=== PATIENT | male | born 1950 | race Caucasian/White ===

== ENCOUNTER 2022-05-18 15:37 | Emergency (ER) | payer SELFPAY ==
[2022-05-18 15:46] VITALS: BP 131/78; PULSE 88; RESP 22; O2SAT 90; BMI 19.5
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
[2022-05-18] MEDS: ketorolac 30 mg/mL INJ IVP (16:20)
[2022-05-18] MEDS: ondansetron 2 mg/ML SDV 2 mL 4 MG IVP (16:20)
[2022-05-18] MEDS: tetanus-dipt-pertussis 0.5 mL SDV IM (16:21)
[2022-05-18 16:41] VITALS: TEMP 36.7
[2022-05-18 16:52] LABS: Basophils % 0.2 %; Eosinophils % 0.2 %; Hematocrit 38.8 % (42.0-52.0); Hemoglobin 12.7 g/dL (11.7-16.6); Lymphocytes # 2.1 10^3/uL (0.8-4.8); Lymphocytes % 10.6 %; Mean Corpuscular HGB Conc 32.7 g/dL (30.0-36.0); Mean Corpuscular Hemoglobin 30.5 pg (28.0-34.0); Mean Corpuscular Volume 93.3 fl (80-94); Mean Platelet Volume 10.2 fL (7.4-10.4); Monocytes % 5.3 %; Neutrophils # 16.11 10^3/uL (1.8-7.7); Nucleated Red Blood Cells % 0 %; Platelet Count 241 10^3/cmm (130-400); Red Blood Count 4.16 10^6/uL (4.1-5.3); Red Cell Distribution Width 13.6 % (12.1-15.1); White Blood Count 19.4 10^3/uL (4.0-10.0)
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
[2022-05-18 17:27] LABS: Alanine Aminotransferase 22 U/L (0-41); Albumin Level 3.7 g/dL (3.5-5.2); Alkaline Phosphatase 81 U/L (40-130); Anion Gap 20.7 (5-19); Aspartate Amino Transferase 27 U/L (0-40); Blood Urea Nitrogen 17 mg/dL (8-23); Calcium 8.7 mg/dL (8.5-10.5); Carbon Dioxide 20 mmol/L (22-29); Chloride 104 mmol/L (98-107); Globulin 2.8 g/dL (1.3-4.6); Glomerular Filtration Rate 54.6 mL/min (90-130); Glucose 129 mg/dL (65-115); Osmolality Calculated 295 mOsm/kg (285-295); Potassium 3.7 mmol/L (3.5-5.1); Sodium 141 mmol/L (136-145); Total Bilirubin 0.5 mg/dL (0.15-1.2); Total Protein 6.5 g/dL (6.6-8.7)
[2022-05-18 17:29] LABS: Alcohol Level < 10 mg/dL (0-10)
[2022-05-18 19:06] VITALS: BP 172/104; PULSE 80; RESP 22; O2SAT 98
[2022-05-18] MEDS: HYDROmorphone 1 mg/mL INJ 1 mL IVP (19:31)
[2022-05-18 20:24] VITALS: BP 101/80; PULSE 80; RESP 22; O2SAT 98
== END 2022-05-18 20:27 ==
PROVIDERS: Emergency Provider Emergency Medicine
DX: S61.412A Laceration without foreign body of left hand, initial encounter (principal); S27.321A Contusion of lung, unilateral, initial encounter; S09.8XXA Other specified injuries of head, initial encounter; J93.9 Pneumothorax, unspecified; S40.812A Abrasion of left upper arm, initial encounter; V85.0XXA Driver of special construction vehicle injured in traffic accident, initial encounter; Z23 Encounter for immunization
CPT/HCPCS: 12004; 70450; 71260; 72125; 74177; 80053; 80307; 85025; 90471; 90715; 96374; 96375; 99285; J1170; J1885; J2405; Q9967

== ENCOUNTER 2022-09-11 17:44 | Inpatient (IN) | payer MEDICARE, SELFPAY ==
[2022-09-11] VITALS (8 sets, daily range): BP systolic 151–183; BP diastolic 84–112; PULSE 65–101; RESP 18–29; O2SAT 88–100
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
[2022-09-11] MEDS: ipratropium-albuterol 3 mL Neb INHALATION (18:24)
--- NOTE | 2022-09-11 18:33 | ECG_ITS ---
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 Measurements Intervals [place] Rate: 89 P: 0 MO: 0 QRS: 91 QRSD: 128 T: 268 QT: 397 QTc: 485 Interpretive Statements UNCERTAIN REGULAR RHYTHM BORDERLINE RIGHT AXIS DEVIATION [QRS AXIS > 90] MODERATE INTRAVENTRICULAR CONDUCTION DELAY [110+ ms QRS DURATION] NONSPECIFIC ST & T-WAVE ABNORMALITY No previous ECG available for comparison Electronically Signed On 09-12-2022 6:18:54 IRRIGATOR VALVE PIPE by Hemant Morris M.D. [id number]
[2022-09-11 18:34] LABS: ABG PCO2 35.8 mmHg (35-45); ABG PH Result 7.48 (7.35-7.45); Arterial Blood Gas Hematocrit 36.1 % (42-52); Base Excess ABG 3.4 mmol/L (-2.0-2.0); Blood Gas Allen Test Pos; Blood Gas Operator Identificat CAK; Blood Gas Sample Site Brachial, right; Blood Gas Sample Type Arterial; HCO3 ABG 26.8 mmol/L (22-26); Oxygen Device BIPAP
[2022-09-11 18:42] LABS: Basophils % 0.2 %; Hematocrit 42.4 % (42.0-52.0); Hemoglobin 12.8 g/dL (11.7-16.6); Lymphocytes # 0.6 10^3/uL (0.8-4.8); Lymphocytes % 6.7 %; Mean Corpuscular HGB Conc 30.2 g/dL (30.0-36.0); Mean Corpuscular Hemoglobin 25.6 pg (28.0-34.0); Mean Corpuscular Volume 84.8 fl (80-94); Mean Platelet Volume 9.4 fL (7.4-10.4); Monocytes # 0.4 10^3/uL (0.2-0.9); Monocytes % 4.9 %; Neutrophils # 7.88 10^3/uL (1.8-7.7); Nucleated Red Blood Cells % 0 %; Platelet Count 311 10^3/cmm (130-400); Red Cell Distribution Width 19.3 % (12.1-15.1)
[2022-09-11 19:07] LABS: Lactate (Lactic Acid level) 2.5 mmol/L (0.5-2.2)
[2022-09-11 19:09] LABS: Troponin(5th) Baseline 234 ng/L (0-15)
[2022-09-11 19:16] LABS: Alanine Aminotransferase 25 U/L (0-41); Albumin Level 2.6 g/dL (3.5-5.2); Alkaline Phosphatase 109 U/L (40-130); Aspartate Amino Transferase 19 U/L (0-40); Blood Urea Nitrogen 32 mg/dL (8-23); C Reactive Protein 178.2 mg/L (0.0-4.9); Carbon Dioxide 28 mmol/L (22-29); Chloride 103 mmol/L (98-107); Globulin 4.6 g/dL (1.3-4.6); Glomerular Filtration Rate 50.1 mL/min (90-130); Glucose 89 mg/dL (65-115); Osmolality Calculated 304 mOsm/kg (285-295); Sodium 144 mmol/L (136-145); Total Bilirubin 0.8 mg/dL (0.15-1.2); Total Protein 7.2 g/dL (6.6-8.7)
[2022-09-11 19:20] LABS: Influenza A by IFA negative (Negative); Influenza B by IFA negative (Negative); SARS Covid-2 Antigen negative (Negative)
--- NOTE | 2022-09-11 19:57 | ECG_ITS ---
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 Measurements Intervals [place] Rate: 79 P: -53 AK: 124 QRS: 106 QRSD: 122 T: 120 QT: 438 QTc: 504 Interpretive Statements SINUS RHYTHM POSSIBLE RIGHT VENTRICULAR HYPERTROPHY [SOME/ALL OF: PROMINENT R IN V1, LATE TRANSITION, RAD, UMM, SSS] MODERATE T-WAVE ABNORMALITY, CONSIDER ANTERIOR ISCHEMIA [-0.1+ mV T-WAVE IN V3/V4] Compared to ECG 09/11/2022 18:33:10 Possible ischemia now present Intraventricular conduction delay no longer present T-wave abnormality still present Electronically Signed On 09-12-2022 6:21:07 WAREHOUSE INSULATION WORKER by Hemant Morris M.D. [id number]
[2022-09-11] MEDS: FUROsemide 10 mg/mL SDV 10mL 80 MG IVP (20:04)
[2022-09-11] MEDS: nitroglycerin 1 gm/inch oint Pkt 2 INCH TOPICAL (20:04)
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
--- NOTE | 2022-09-11 20:43 | PC.NURSE ---
Sandra DON given pt report.
[2022-09-11 20:59] LABS: Procalcitonin 0.45 ng/mL (0-0.5)
[2022-09-11] MEDS: aspirin 81 mg Chew Tablet 162 MG PO (21:02)
--- NOTE | 2022-09-11 21:03 | PC.NURSE ---
patient moved from bipap machine to 4.[address] Márquez . patient tolerated change well. patient in no obivous distress. patient will be transferred to floor accordingly .
[2022-09-11] MEDS: heparin drip 25,000 UNIT/500 ML PREMIX 17 UNIT IV (22:17)
[2022-09-11] MEDS: heparin 5,000 unit/mL INJ 1 mL IV (22:17)
[2022-09-11] MEDS: pneumococcal (23 valent) SDV 0.5 mL IM (22:22)
[2022-09-11] MEDS: clopidogrel 300 mg Tablet PO (22:23)
[2022-09-11 22:28] LABS: D Dimer 5.96 ug/mIFEU (0-0.59)
[2022-09-11 22:35] LABS: Platelet Count 304 10^3/cmm (130-400)
[2022-09-11 22:49] LABS: Partial Thromboplastin Time 31.4 SECONDS (23.9-36.7)
[2022-09-11 22:59] LABS: Estmated Average Glucose 123; Hemoglobin A1C 5.9 % (4.0-6.0)
[2022-09-11 23:44] LABS: Thyroid Stimulating Hormone 3.81 uIU/mL (0.27-4.20); Vitamin B12 1236 pg/mL (232-1245)
[2022-09-12] VITALS (153 sets, daily range): BP systolic 119–166; BP diastolic 56–87; PULSE 38–81; RESP 7–29; TEMP 36.3–36.9; O2SAT 79–100
[2022-09-12 05:00] LABS: Basophils % 0.1 %; Hematocrit 41.3 % (42.0-52.0); Hemoglobin 12.6 g/dL (11.7-16.6); Lymphocytes # 0.5 10^3/uL (0.8-4.8); Lymphocytes % 7.1 %; Mean Corpuscular HGB Conc 30.5 g/dL (30.0-36.0); Mean Corpuscular Hemoglobin 25.7 pg (28.0-34.0); Mean Corpuscular Volume 84.1 fl (80-94); Mean Platelet Volume 9.8 fL (7.4-10.4); Monocytes # 0.1 10^3/uL (0.2-0.9); Neutrophils # 6.19 10^3/uL (1.8-7.7); Neutrophils % 91.5 %; Nucleated Red Blood Cells % 0 %; Platelet Count 292 10^3/cmm (130-400); Red Blood Count 4.91 10^6/uL (4.1-5.3); Red Cell Distribution Width 18.9 % (12.1-15.1); White Blood Count 6.8 10^3/uL (4.0-10.0)
[2022-09-12 05:20] LABS: Partial Thromboplastin Time 40.9 SECONDS (23.9-36.7)
[2022-09-12 05:32] LABS: Anion Gap 18.5 (5-19); Blood Urea Nitrogen 34 mg/dL (8-23); C Reactive Protein 172.9 mg/L (0.0-4.9); Calcium 8.6 mg/dL (8.5-10.5); Carbon Dioxide 28 mmol/L (22-29); Chloride 100 mmol/L (98-107); Glomerular Filtration Rate 54.6 mL/min (90-130); Glucose 100 mg/dL (65-115); Magnesium 2.2 mg/dL (1.7-2.3); Osmolality Calculated 304 mOsm/kg (285-295); Potassium 3.5 mmol/L (3.5-5.1); Sodium 143 mmol/L (136-145)
[2022-09-12] MEDS: heparin 5,000 unit/mL INJ 1 mL IV ×2 (05:40→12:59)
--- NOTE | 2022-09-12 06:00 | USCV_ITS ---
Samuel Dale Age: 72 Gender: M : 1950 Exam Date: 09/12/2022 10:40 Ordering Phys: Jose Raul Márquez MD Technologist: Exam Location: [facility] – [place], [place] Indication: nstemi BP: 169 / 87 HR: 52 Rhythm: Sinus Technical Quality: Adequate MEASUREMENTS (Male / Female) Normal Values 2D ECHO LV Diastolic Diameter PLAX 3.5 cm 4.2 - 5.9 / 3.9 - 5.3 cm LV Systolic Diameter PLAX 3.0 cm IVS Diastolic Thickness 1.0 cm 0.6 - 1.0 / 0.6 - 0.9 cm IVS Systolic Thickness 1.4 cm LVPW Diastolic Thickness 1.2 cm 0.6 - 1.0 / 0.6 - 0.9 cm LVPW Systolic Thickness 1.6 cm LVOT Diameter 2.1 cm LV Ejection Fraction 2D Teich 21.5 % LV Ejection Fraction MOD 2C 59.7 % LV Ejection Fraction 2C AL 58.2 % LA Diameter 3.9 cm IVC Diameter 1.6 cm M-MODE Aortic Annulus Diameter 3.7 cm LA Ao Ratio MM 1.2 DOPPLER AV Peak Velocity 119.0 cm/s LVOT Peak Velocity 90.0 cm/s AV Area Cont Eq vti 2.2 cm squared AV Area Cont Eq pk 2.6 cm squared MV Area PHT 5.0 cm squared Mitral E to A Ratio 0.8 MV E' Velocity 30.5 cm/s Mitral E to MV E' Ratio 10.6 Mitral E to LV E' Lateral Ratio 9.5 Mitral E to LV E' Septal Ratio 12.0 TR Peak Velocity 135.3 cm/s TR Peak Gradient 7.3 mmHg RV Acceleration Time 0.1 s FINDINGS Left Ventricle Left ventricle is normal in size. LV systolic function is normal with EF 55 to 60%. No regional wall motion abnormalities are seen. Grade 1 diastolic dysfunction Right Ventricle Normal in size and function Right Atrium Normal in size Left Atrium Normal in size Mitral Valve Structurally normal mitral valve. No significant stenosis or regurgitation seen. Aortic Valve Structurally normal aortic valve. No significant stenosis or regurgitation Tricuspid Valve Trace tricuspid regurgitation. Insufficient TR jet to calculate RVSP Pulmonic Valve Not well-visualized Pericardium Normal. Pleural effusion is seen Aorta Normal in size IVC Appears to be normal CONCLUSIONS LV systolic function is normal with EF of 55-60% Grade 1 diastolic dysfunction No significant valvular dysfunction seen No comparison studies are available Hemant Morris MD (Electronically Signed) Final Date: 12 September 2022 20:15 S
[2022-09-12] MEDS: metoprolol succinate ER (24 HR) 25 mg Tablet 12.5 MG PO (08:26)
[2022-09-12] MEDS: clopidogrel 75 mg Tablet PO (08:26)
[2022-09-12] MEDS: amlodipine 10 mg Tablet PO (08:26)
[2022-09-12] MEDS: atorvastatin 40 mg Tablet 80 MG PO (08:26)
[2022-09-12] MEDS: FUROsemide 10 mg/mL SDV 10mL 20 MG IVP (08:27)
[2022-09-12] MEDS: hyDRALAzine 25 mg Tablet PO ×2 (08:27→17:14)
[2022-09-12] MEDS: sennosides-docusate Tablet 1 TAB PO (08:32)
[2022-09-12] MEDS: aspirin 81 mg EC Tablet PO (08:48)
--- NOTE | 2022-09-12 12:06 | PC.CHAP ---
Pastoral Care Encounter/Spiritual Assessment Type of Contact [] Declined gas line servicer visit [] Patient/Family/Request visit [] Outpatient visit [] Follow-up visit [] Physician referral [] Code/Alert [x] Routine visit [] Staff referral [] Actively dying [] Patient sleeping [] Family support [] [] Out of room [] Palliative care [] [] Receiving care in room [] Pre-surgical visit [] Trauma [] Long length of stay [] ICU visit [] Other: Relational/Emotional Strength [x] Patient feels connected with others/family/visitors/staff [] Distress [] Loneliness/isolation [] Abandonment Spirituality of Patient [x] Person of [place] [x] Attends Pentecostal of their [place] [x] Believes in Prayer [] Reads Bible or Orthodox materials [] There are Spiritual issues to be addressed Bank Consultant Interventions [x] Prayer [x] Active listening [x] Non-anxious presence [x] Spiritual/emotional support [] Crisis/trauma care [] Spiritual counseling [] Bereavement support [] Provided bereavement packet [] Provided Bible/devotional materials [] Provided toy/stuffed animal, coloring book to patient or family member [] Provided Communion [] Anointing/[place] [] Salvation [x] Completed spiritual assessment [] Other: Impact on Illness or Injury [] Angry [] Fearful [] Anxious [] Often cries [] Exhaustion [] Unable to work [] Unable to attend synagogue [] Unable to walk/stand [] Unable to read [] Unable to drive [] Unable to eat/drink [] Unable to sleep [] Unable to be with family [] Patient intubated [] Other: Summary Time spent with patient 10 min
[2022-09-12 12:20] LABS: Partial Thromboplastin Time 45.7 SECONDS (23.9-36.7)
[2022-09-12 19:03] LABS: Partial Thromboplastin Time 49.3 SECONDS (23.9-36.7)
--- NOTE | 2022-09-12 19:30 | PM.PN ---
Subjective Subjective: He has been having pleuritic chest discomfort. Denies chest pressure. Denies pain currently. Denies any history of GA in the past. Vitals/I&O/Wt Last Vital Signs Temp 98.5 F 09/12/22 16:00 Pulse 67 09/12/22 16:30 Resp 16 09/12/22 16:30 BP 119/56 09/12/22 16:00 Pulse Ox 87 L 09/12/22 17:15 O2 Del Method 09/12/22 17:15 O2 Flow Rate 1.5 09/12/22 16:30 FiO2 40 09/11/22 18:28 09/12/22 09/12/22 09/12/22 06:59 14:59 22:59 Intake Total 875.517 / 995.517 619.333 / 619.333 Output Total 2049 / 2199 225 / 225 150 / 375 Balance -1174.483 / -1204.483 394.333 / 394.333 -150 / 244.333 Weight last 48 hrs Weight 60.895 kg Physical Exam Const: COMMON NORMALS: patient oriented x3 and alert GENERAL APPEARANCE: cooperative NUTRITIONAL APPEARANCE: thin ORIENTATION/CONSCIOUSNESS: Yes awake HENMT: COMMON NORMALS: oropharynx normal Neck/C-Spine: COMMON NORMALS: no JVD Resp: COMMON NORMALS: normal respiratory effort AUSCULTATION: diminished lung sounds Cardio: COMMON NORMALS: no JVD, regular rhythm, S1 normal heart sound present, S2 normal heart sound present and No murmurs present (Cardio) RHYTHM: regular rhythm HEART SOUNDS: S1 normal heart sound present and S2 normal heart sound present GI: COMMON NORMALS: Normal to inspection, nondistended, normoactive bowel sounds present, Soft to palpation and non-tender PALPATION: Yes Soft to palpation Extremity: COMMON NORMALS: no joint enlargement and no pedal edema Neuro: COMMON NORMALS: patient oriented x3 and moves all extremities SENSORIUM/ORIENTATION: Yes alert Skin: COMMON NORMALS: no rashes or lesions noted GENERAL SKIN EXAM: no rashes or lesions noted Data 09/12/22 04:17 09/12/22 04:17 Micro: Microbiology 09/11/22 18:18 Blood Culture - Preliminary Blood 09/11/22 18:25 Blood Culture - Preliminary Blood 09/11/22 21:51 MRSA Culture - Final Nose A&P Assessment and plan (1) Acute exacerbation of CHF (congestive heart failure): Continue gentle diuresis. Monitor I&O. Electrolytes. Renal function. Oxygen support as needed. Maintain saturation 90%. With pleural effusion. Consider follow-up imaging for improvement/resolution. (2) Pulmonary edema: As above. (3) Acute respiratory failure with hypoxia: Continue empiric anticoagulation for now. D-dimer was abnormal. Will need further assessment for PE. Currently also with ANGELA. (4) Energy protein malnutrition: Protein shakes with meals. (5) NSTEMI (non-ST elevated myocardial infarction): Continue aspirin, beta-jose, statin. Continue heparin drip. No chest pain. May be demand ischemia with acute CHF, COPD exacerbation. Follow-up TTE. Remains chest pain-free. Assess stress test. (6) Acute worsening of stage 3 chronic kidney disease: Plan Acute on chronic kidney disease cardiorenal, anticipate improvement with diuresis. Follow-up renal function. Acute COPD exacerbation related to CHF exacerbation and active smoking: Mild, continue DuoNeb every 4 as needed Goals of care discussed with the patient and his , patient wishes to pursue comfort care in case of cardiac arrest he does not want any aggressive intervention History of rib fracture after traumatic injury has screws and plates left rib cage Stage II sacral ulcer present on admission, nursing care, weight offloading, offloading dressing, application of barrier cream Multiple comorbid conditions Cardiac diet Guarded prognosis Attestations Medical Necessity Statement*: Continue admission for cyst management of acute CHF, with underlying COPD, mild exacerbation, possible NSTEMI. Coding Level of Care Code Acute Reed Press Feeder for Marisela Gregorio Diagnoses Acute exacerbation of CHF (congestive heart failure) I50.9 Pulmonary edema J81.1 Acute respiratory failure with hypoxia J96.01 Energy protein malnutrition E46 NSTEMI (non-ST elevated myocardial infarction) I21.4 Acute worsening of stage 3 chronic kidney disease N18.30
[2022-09-12] MEDS: ipratropium-albuterol 3 mL Neb INHALATION (20:38)
[2022-09-13] VITALS (113 sets, daily range): BP systolic 128–170; BP diastolic 66–96; PULSE 58–91; RESP 14–38; TEMP 36.7–37; O2SAT 76–100
--- NOTE | 2022-09-13 | ECG_ITS ---
[facility] Test Date: 2022-09-13 Pat Name: Samuel Dale Department: Room: 101 Gender: Male Wellness Educator: Shahnaz Hunt : 1950 Requested By: Moo Zapata Order Number: [id number] Cindy MD: Lois Mahajan M.D. Interpretive Statements NAME OF STUDY: LEXISCAN SESTAMIBI STRESS TEST INDICATION: Chest Pain; Shortness of Breath PROCEDURE: At the baseline, the blood pressure was 156/94 mm Hg with a heart rate of 80 bpm. The electrocardiogram showed sinus rhythm, right axis deviation. Right bundle branch block. The Lexiscan was infused over a period of 20 seconds. A total of 0.4 milligrams of Lexiscan was infused. The stress phase was continued for a total of 5 minutes. Heart rate at the end of the stress phase was 77 bpm with a blood pressure of 162/84 mmHg. The EKG at the peak infusion revealed sinus rhythm with no significant ST-T wave changes. Short run of atrial tachycardia during Lexiscan infusion. Study was terminated due to protocol completion. Sestamibi was injected 20 seconds after the Lexiscan infusion. Blood pressure at the end of the recovery phase was 158/78 mmHg with a heart rate of 76 beats per minute. CONCLUSION: 1. No significant EKG changes with the LexiScan infusion. 2. No LexiScan induced chest pain or cardiac arrhythmia. 3. Normal blood pressure and heart rate response. 4. Sestamibi/sestamibi perfusion scan pending; see separate report. Electronically Signed On 09-13-2022 14:17:36 MANAGER CUSTOM by Lois Mahajan M.D. [email or web address] Codingst[facility] [place] [facility].[id number]
[2022-09-13] MEDS: heparin drip 25,000 UNIT/500 ML PREMIX 21 UNIT IV (00:17)
[2022-09-13 01:50] LABS: Basophils % 0.3 %; Eosinophils % 0.1 %; Hematocrit 35.1 % (42.0-52.0); Hemoglobin 10.5 g/dL (11.7-16.6); Lymphocytes # 0.8 10^3/uL (0.8-4.8); Lymphocytes % 6.7 %; Mean Corpuscular HGB Conc 29.9 g/dL (30.0-36.0); Mean Corpuscular Hemoglobin 25.4 pg (28.0-34.0); Mean Corpuscular Volume 84.8 fl (80-94); Mean Platelet Volume 9.6 fL (7.4-10.4); Monocytes # 0.5 10^3/uL (0.2-0.9); Neutrophils # 10.53 10^3/uL (1.8-7.7); Neutrophils % 88.5 %; Nucleated Red Blood Cells % 0 %; Platelet Count 252 10^3/cmm (130-400); Red Blood Count 4.14 10^6/uL (4.1-5.3); Red Cell Distribution Width 18.8 % (12.1-15.1); White Blood Count 11.9 10^3/uL (4.0-10.0)
[2022-09-13 01:53] LABS: Partial Thromboplastin Time 52.6 SECONDS (23.9-36.7)
[2022-09-13 02:20] LABS: Alanine Aminotransferase 29 U/L (0-41); Albumin Level 2.2 g/dL (3.5-5.2); Alkaline Phosphatase 86 U/L (40-130); Anion Gap 13.1 (5-19); Aspartate Amino Transferase 42 U/L (0-40); Blood Urea Nitrogen 45 mg/dL (8-23); Calcium 8.2 mg/dL (8.5-10.5); Carbon Dioxide 31 mmol/L (22-29); Chloride 101 mmol/L (98-107); Globulin 3.6 g/dL (1.3-4.6); Glomerular Filtration Rate 54.6 mL/min (90-130); Glucose 119 mg/dL (65-115); Osmolality Calculated 307 mOsm/kg (285-295); Potassium 3.1 mmol/L (3.5-5.1); Sodium 142 mmol/L (136-145); Total Bilirubin 0.4 mg/dL (0.15-1.2); Total Protein 5.8 g/dL (6.6-8.7)
[2022-09-13] MEDS: heparin 5,000 unit/mL INJ 1 mL IV ×2 (02:20→11:39)
--- NOTE | 2022-09-13 02:25 | PC.NURSE ---
notified of drop in hemoglobin from 12.6 to 10.5 since starting Heparin gtt. No new orders received. Will continued heparin as previously ordered per protocol. Rate increase and bolus administered per NOV.
[2022-09-13] MEDS: ipratropium-albuterol 3 mL Neb INHALATION ×3 (02:30→19:33)
--- NOTE | 2022-09-13 07:00 | NMCV_ITS ---
NM ronna perf SPECT r/s* [id number] Samuel Dale Age: 72 Gender: M : 1950 Exam Date: 09/13/2022 07:40 Ordering Phys: Moo Zapata MD Technologist: ESDRAS Moreno Exam Location: [facility] Indications: CHEST PAIN STRESS TEST Please see separate stress test report in [facility] for full findings IMAGE PROTOCOL Rest/Stress 1 Lexiscan Day Radiopharmaceutical Dose (mCi) Administration Site Administered by Rest: Tc-99m 10.6 IV ESDRAS Oliva Sestamibi Stress:Tc-99m 32.6 IV ESDRAS Oliva Sestamibi Rest: 13-Sep-2022 60 Discovery 630 Stress: 13-Sep-2022 30 Discovery 630 0.4mg Lexiscan. Supine position only as patient was unable to lay prone. SPECT RESULTS Technical Quality: Excellent Raw Data Analysis: Normal Image Corrections: No attenuation or motion correction applied Summed Stress Score: 20 Summed Rest Score: 15 Summed Difference Score: 6 PERFUSION FINDINGS Large sized perfusion abnormality of moderate to severe severity of basal to apical inferior, basal to mid inferolateral, apical lateral, mid anterolateral, apical anterior and apical sanchez on rest images with subtle reversibility in lateral wall on stress images. FUNCTIONAL RESULTS (calculated via Gated SPECT) Stress Image LV EF (%): 37 Stress EDV (mL):134 TID: 0.9 Stress ESV (mL):85 FUNCTIONAL FINDINGS: The left ventricle is normal in size. Transient Ischemia Dilatation of 0.9. The left ventricular ejection fraction is moderately reduced with a value of 37%. There is global hypokinesis more pronounced in inferior and lateral sanchez. Markedly increased end-diastolic end-systolic volumes. IMPRESSIONS 1. Large sized perfusion abnormality of basal to apical inferior, basal to mid inferolateral, apical lateral, mid anterolateral, apical anterior and apical sanchez with subtle reversibility in lateral wall. 2. This is suggestive of old myocardial infarction in right coronary artery, circumflex artery and left anterior descending artery territory with minimal micki-infarct ischemia in circumflex artery territory. 3. The left ventricular ejection fraction is moderately reduced with a value of 37%. 4. There is global hypokinesis more pronounced in inferior and lateral sanchez. 5. These findings are compatible with an ischemic cardiomyopathy. Lois Keyshawn MD (Electronically Signed) Final Date: 13 September 2022 13:07 S
[2022-09-13] MEDS: regadenoson 0.4 Mg/5 ml Syringe IVP (08:15)
[2022-09-13 08:28] LABS: Partial Thromboplastin Time 30.8 SECONDS (23.9-36.7)
[2022-09-13] MEDS: aspirin 81 mg EC Tablet PO (09:47)
[2022-09-13] MEDS: metoprolol succinate ER (24 HR) 25 mg Tablet 12.5 MG PO (09:47)
[2022-09-13] MEDS: potassium chloride ER 20 mEq Tablet 40 MEQ PO (09:47)
[2022-09-13] MEDS: amlodipine 10 mg Tablet PO (09:48)
[2022-09-13] MEDS: atorvastatin 40 mg Tablet 80 MG PO (09:49)
[2022-09-13] MEDS: sennosides-docusate Tablet 1 TAB PO (09:49)
[2022-09-13] MEDS: clopidogrel 75 mg Tablet PO (09:49)
[2022-09-13] MEDS: hyDRALAzine 25 mg Tablet PO ×2 (09:49→17:31)
[2022-09-13] MEDS: FUROsemide 10 mg/mL SDV 10mL 20 MG IVP (09:50)
[2022-09-13 14:51] LABS: Partial Thromboplastin Time 91.8 SECONDS (23.9-36.7)
--- NOTE | 2022-09-13 20:00 | P.PN_ITS ---
Subjective Subjective: States he got very tired during stress test. Reports getting tired easily. Having some cough. Has not really produced any phlegm. Vitals/I&O/Wt Last Vital Signs Temp 98.6 F 09/13/22 19:43 Pulse 81 09/13/22 19:43 Resp 20 H 09/13/22 19:43 BP 152/72 09/13/22 19:43 Pulse Ox 95 09/13/22 19:43 O2 Del Method 09/13/22 19:43 O2 Flow Rate 1.5 09/13/22 19:43 FiO2 2 09/13/22 19:38 09/13/22 09/13/22 09/13/22 06:59 14:59 22:59 Intake Total 268.367 / 1337.700 280 / 280 240 / 520 Output Total 225 / 600 300 / 300 Balance 43.367 / 737.700 - 240 / 220 Weight last 48 hrs Weight 60.895 kg Physical Exam Const: COMMON NORMALS: patient oriented x3 and alert GENERAL APPEARANCE: cooperative and frail appearing NUTRITIONAL APPEARANCE: thin ORIENTATION/CONSCIOUSNESS: Yes awake HENMT: COMMON NORMALS: oropharynx normal Neck/C-Spine: COMMON NORMALS: no JVD Resp: COMMON NORMALS: normal respiratory effort AUSCULTATION: diminished lung sounds Cardio: COMMON NORMALS: no JVD, regular rhythm, S1 normal heart sound present, S2 normal heart sound present and No murmurs present (Cardio) RHYTHM: regular rhythm HEART SOUNDS: S1 normal heart sound present and S2 normal heart sound present GI: COMMON NORMALS: Normal to inspection, nondistended, normoactive bowel sounds present, Soft to palpation and non-tender PALPATION: Yes Soft to palpation Extremity: COMMON NORMALS: no joint enlargement and no pedal edema Neuro: COMMON NORMALS: patient oriented x3 and moves all extremities SE NSORIUM/ORIENTATION: Yes alert Skin: COMMON NORMALS: no rashes or lesions noted GENERAL SKIN EXAM: no rashes or lesions noted Data 09/13/22 01:11 09/13/22 01:11 Micro: Microbiology 09/11/22 18:18 Blood Culture - Preliminary Blood Coag positive Staphylococcus 09/11/22 18:25 Blood Culture - Preliminary Blood Coag positive Staphylococcus A&P Assessment and plan (1) Acute exacerbation of CHF (congestive heart failure): Abnormal stress test results noted with large sized. Abnormality basal to apical inferior, basal to mid inferior lateral, apical lateral, mid anterolateral, apical anterior and sanchez with subtle reversibility anterolateral wall. Suggestive of old NC and RCA, circumflex and LAD artery territory with minimal micki-infarct ischemia in circumflex artery territory. Concern for ischemic cardiomyopathy. EF noted 37%, although was difficult to assess, EF more normal-appearing on TTE. Appreciate cardiology evaluation recommendations. Currently continue medical therapy as ordered. Continue gentle diuresis. Monitor I&O. Electrolytes. Renal function. Oxygen support as needed. Maintain saturation 90%. With pleural effusion. Consider follow-up imaging for improvement/resolution. (2) Pulmonary edema: As above. (3) Acute respiratory failure with hypoxia: Continue empiric anticoagulation for now. D-dimer was abnormal. Will need further assessment for PE. Currently also with ANGELA. VQ scan was deferred due to obtaining stress test. (4) Energy protein malnutrition: Protein shakes with meals. (5) NSTEMI (non-ST elevated myocardial infarction): Appreciate cardiology assessment given abnormal stress test, acute CHF with elevated troponin on presentation. Possible ischemic cardiomyopathy. Continue aspirin, beta-jose, statin. Continue heparin drip. No chest pain. May be demand ischemia with acute CHF, COPD exacerbation. (6) Acute worsening of stage 3 chronic kidney disease: Plan Acute on chronic kidney disease cardiorenal, anticipate improvement with diuresis. Follow-up renal function. Acute COPD exacerbation related to CHF exacerbation and active smoking: Mild, continue DuoNeb every 4 as needed add prednisone. Doxycycline. Continue scheduled nebs. Goals of care discussed with the patient and his , patient wishes to pursue comfort care in case of cardiac arrest he does not want any aggressive intervention History of rib fracture after traumatic injury has screws and plates left rib cage Stage II sacral ulcer present on admission, nursing care, weight offloading, offloading dressing, application of barrier cream Multiple comorbid conditions Cardiac diet Guarded prognosis Attestations Medical Necessity Statement*: Continue admission for assessment management of acute CHF, COPD isolation. Coding Level of Care Code Acute Fabricator Foam Rubber for Marisela Gregorio Diagnoses Acute exacerbation of CHF (congestive heart failure) I50.9 Pulmonary edema J81.1 Acute respiratory failure with hypoxia J96.01 Energy protein malnutrition E46 NSTEMI (non-ST elevated myocardial infarction) I21.4 Acute worsening of stage 3 chronic kidney disease N18.30
[2022-09-13] MEDS: heparin drip 25,000 UNIT/500 ML PREMIX 24 UNIT IV (20:31)
[2022-09-13] MEDS: doxycycline 100 mg Tablet PO (20:41)
[2022-09-13 21:06] LABS: Partial Thromboplastin Time 66.6 SECONDS (23.9-36.7)
[2022-09-14] VITALS (15 sets, daily range): BP systolic 141–170; BP diastolic 68–84; PULSE 65–93; RESP 14–24; TEMP 36.6–37.1; O2SAT 92–96
[2022-09-14 02:40] LABS: Basophils % 0.3 %; Hematocrit 33.2 % (42.0-52.0); Hemoglobin 10.2 g/dL (11.7-16.6); Lymphocytes # 0.5 10^3/uL (0.8-4.8); Lymphocytes % 5.1 %; Mean Corpuscular HGB Conc 30.7 g/dL (30.0-36.0); Mean Corpuscular Hemoglobin 25.9 pg (28.0-34.0); Mean Corpuscular Volume 84.3 fl (80-94); Mean Platelet Volume 9.6 fL (7.4-10.4); Monocytes # 0.4 10^3/uL (0.2-0.9); Monocytes % 4.3 %; Neutrophils # 8.61 10^3/uL (1.8-7.7); Nucleated Red Blood Cells % 0 %; Platelet Count 200 10^3/cmm (130-400); Red Blood Count 3.94 10^6/uL (4.1-5.3); Red Cell Distribution Width 18.7 % (12.1-15.1); White Blood Count 9.6 10^3/uL (4.0-10.0)
[2022-09-14 02:58] LABS: Partial Thromboplastin Time 36.7 SECONDS (23.9-36.7)
--- NOTE | 2022-09-14 03:00 | PC.NURSE ---
Nurse to room, patient was noted to have accidently removed IV line with heparin infusing. Bleeding controlled. Oxygen removed by patient was placed back on, tolerated well. Due to blood/heparin on sheets, patients bedding changed. Denies further needs. PTT drawn as previously ordered, unclear when IV as removed.
[2022-09-14] MEDS: heparin 5,000 unit/mL INJ 1 mL IV (03:07)
[2022-09-14 03:08] LABS: Alanine Aminotransferase 35 U/L (0-41); Albumin Level 2.3 g/dL (3.5-5.2); Alkaline Phosphatase 93 U/L (40-130); Anion Gap 10.4 (5-19); Aspartate Amino Transferase 35 U/L (0-40); Blood Urea Nitrogen 38 mg/dL (8-23); Calcium 8.3 mg/dL (8.5-10.5); Carbon Dioxide 29 mmol/L (22-29); Chloride 101 mmol/L (98-107); Globulin 3.7 g/dL (1.3-4.6); Glomerular Filtration Rate 83.4 mL/min (90-130); Glucose 116 mg/dL (65-115); Osmolality Calculated 294 mOsm/kg (285-295); Potassium 3.4 mmol/L (3.5-5.1); Sodium 137 mmol/L (136-145); Total Bilirubin 0.5 mg/dL (0.15-1.2)
[2022-09-14] MEDS: ipratropium-albuterol 3 mL Neb INHALATION ×2 (03:11→14:20)
[2022-09-14] MEDS: FUROsemide 10 mg/mL SDV 10mL 20 MG IVP (08:50)
[2022-09-14] MEDS: amlodipine 10 mg Tablet PO (08:52)
[2022-09-14] MEDS: doxycycline 100 mg Tablet PO ×2 (08:52→17:49)
[2022-09-14] MEDS: predniSONE 20 mg Tablet 40 MG PO (08:52)
[2022-09-14] MEDS: aspirin 81 mg EC Tablet PO (08:53)
[2022-09-14] MEDS: metoprolol succinate ER (24 HR) 25 mg Tablet 12.5 MG PO (08:53)
[2022-09-14] MEDS: atorvastatin 40 mg Tablet 80 MG PO (08:53)
[2022-09-14] MEDS: clopidogrel 75 mg Tablet PO (08:53)
[2022-09-14] MEDS: hyDRALAzine 25 mg Tablet PO ×2 (08:54→17:49)
[2022-09-14] MEDS: sennosides-docusate Tablet 1 TAB PO (08:54)
--- NOTE | 2022-09-14 10:05 | P.CONIM_ITS ---
Providers/Reason For Consult Consulting Physician/Specialty*: Dr. Mahajan, Cardiology Reason for Consult*: Elevated troponin, abnormal stress test Attending Physician: Moo Zapata History of Present Illness History of Present Illness Samuel Dale is a 72 year old male with PMHx of COPD, active smoker, h/o traumatic rib fracture (he spent at least 4 weeks between April and May 2022 at [facility], h/o sacral ulcer and nearly 20-25 lb of weight loss. He has been experiencing shortness of breath for last several months and that progressively got worse, nausea/ emesis and cough productive of whitish sputum.? No recent fever, URI like symptoms.?No prior cardiac history. He is a chronic active smoker 1 PK/day.? He was noted to have elevated troponin that down trended after admission, CHF exacerbation on CXR. He lives with his . He is DNR/DNI. Echo with mildly to moderately decreased LV function. LVEF=40-45%. He underwent stress test that did not show any ischemia. I have been asked to evaluate the patient for the same. Patient denies any chest pain , SOB somewhat improved. No events on telemetry. Home meds: Diltiazem 60 mg TID mirtazapine 7.5 mg PO bedtime ? albuterol PRN Review of Systems Const: Reports: chills, body aches and fatigue Eyes: Denies: change in vision ENMT: Denies: throat pain Card: Reports: edema, orthopnea and leg pain with exertion; Denies: chest pain, palpitations or lightheadedness Resp: Reports: dyspnea and productive cough; Denies: wheezing or change in phlegm color GI: Denies: abdominal pain, vomiting, hematemesis, diarrhea, constipation, hematochezia or melena : Denies: flank pain or hematuria Musc: Reports: back pain Skin/Breast: Reports: rash and lesions Neuro: Denies: headache(s) Psych: Denies: anxiety Endo: Denies: polyuria Hipolito/Lymph: Denies: easy bruising, easy bleeding, petechiae or purpura All/Imm: Denies: urticaria Medications/Allergies Home Medications Medication Instructions Recorded Confirmed Last Taken Type albuterol sulfate 90 mcg/actuation 2 puff inhalation Q4H PRN 05/18/22 09/11/22 05/18/22 History aerosol inhaler Shortness Of Breath diltiazem HCl 60 mg tablet 60 mg PO TID 05/18/22 09/11/22 05/18/22 History mirtazapine 7.5 mg tablet 7.5 mg PO BEDTIME 09/11/22 09/11/22 Unknown History Allergies Allergy/AdvReac Type Severity Reaction Status Date / Time No Known Allergies Allergy Verified 09/11/22 19:56 Current Medications Generic Name Dose Route Start Last Admin Trade Name Freq PRN Reason Stop Dose Admin Albuterol/Ipratropium 3 ml 09/12/22 20:00 09/14/22 08:35 Ipratropium-Albuterol 3 Ml Neb INHALATION Not Given Q6H.RESP MICHAEL Amlodipine Besylate 10 mg 09/12/22 09:00 09/14/22 08:52 Amlodipine 10 Mg Tablet PO 10 mg DAILY MICHAEL Administration Aspirin 81 mg 09/12/22 09:00 09/14/22 08:53 Aspirin 81 Mg Ec Tablet PO 81 mg DAILY MICHAEL Administration Atorvastatin Calcium 80 mg 09/12/22 09:00 09/14/22 08:53 Atorvastatin 40 Mg Tablet PO 80 mg DAILY MICHAEL Administration Clopidogrel Bisulfate 75 mg 09/12/22 09:00 09/14/22 08:53 Clopidogrel 75 Mg Tablet PO 75 mg DAILY MICHAEL Administration Doxycycline Monohydrate 100 mg 09/13/22 20:05 09/14/22 08:52 Doxycycline 100 Mg Tablet PO 100 mg BID MICHAEL Administration Protocol Furosemide 20 mg 09/12/22 09:00 09/14/22 08:50 Furosemide 10 Mg/Ml Sdv 10ml IVP 20 mg DAILY MICHAEL Administration Heparin Sodium (Porcine) 0 unit 09/11/22 21:13 09/14/22 03:07 Heparin 5,000 Unit/Ml Inj 1 Ml IV 2,500 unit PRN PRN Administration Heparin weight-base protocol Protocol Hydralazine HCl 25 mg 09/12/22 09:00 09/14/22 08:54 Hydralazine 25 Mg Tablet PO 25 mg BID MICHAEL Administration Heparin Sodium/Sodium Chloride 25,000 unit in 500 mls @ 0 mls/hr 09/11/22 21:13 09/14/22 03:08 Heparin Drip IV 21.35 unit/kg/hr .Q0M MICHAEL 26 mls/hr Titration Protocol Per Protocol Metoprolol Succinate 12.5 mg 09/12/22 09:00 09/14/22 08:53 Metoprolol Succinate Er (24 Hr) 25 Mg Tablet PO 12.5 mg DAILY MICHAEL Administration Prednisone 40 mg 09/14/22 09:00 09/14/22 08:52 Prednisone 20 Mg Tablet PO 40 mg DAILY MICHAEL Administration Senna/Docusate Sodium 1 tab 09/12/22 09:00 09/14/22 08:54 Sennosides-Docusate Tablet PO 1 tab DAILY MICHAEL Administration PFSH Acute PFSH: Medical History Abrasion of arm, left COPD (chronic obstructive pulmonary disease) HTN (hypertension) Pleural fistula Rib cage dysfunction Rib fracture Trauma Surgical History No pertinent past surgical history Traumatic rib fracture status post reconstructive plates and screws left for benign Family History Denies family history of CAD (coronary artery disease) Social History Smoking and tobacco status: current every day smoker Alcohol intake: never Substance/Drug Use: never Household members: spouse Vitals/I&O/Wt Last Vital Signs Temp 98.8 F 09/14/22 07:09 Pulse 77 09/14/22 08:35 Resp 16 09/14/22 08:35 BP 170/84 09/14/22 07:09 Pulse Ox 94 09/14/22 08:35 O2 Del Method 09/14/22 08:35 O2 Flow Rate 2 09/14/22 08:35 FiO2 2 09/13/22 19:38 09/13/22 09/14/22 09/14/22 22:59 06:59 14:59 Intake Total 640.4 / 920.4 308.8 / 1229.2 240 / 240 Output Total 525 / 525 Balance 640.4 / 620.4 308.8 / 929.2 -285 / -285 Physical Exam Narrative: GENERAL: frail cachetic patient laying in bed in no acute distress HEENT: Extraocular movement intact. No pallor or icterus. NECK: central trachea, no JVD, No carotid bruit. CARDIOVASCULAR SYSTEM: S1-S2 regular. No murmur or gallops. RESPIRATORY SYSTEM: Chest clear to auscultation. No wheezes rhonchi or rubs heard. No use of accessory muscles. ABDOMEN: Soft, nontender and nondistended. Normal bowel sounds present. EXTREMITIES: No cyanosis or edema. No signs of chronic venous insufficiency. HAND I THERMAL CUTTER: Patient is alert oriented ?3. No focal neurological deficits. SKIN: Normal turgor and temperature. PSYCH: Normal insight and judgment. Data 09/14/22 02:30 09/14/22 02:30 Micro: Microbiology 09/11/22 18:18 Blood Culture - Preliminary Blood Coag positive Staphylococcus 09/11/22 18:25 Blood Culture - Preliminary Blood Coag positive Staphylococcus Other data: Lexiscan sestamibi MPI ?IMPRESSIONS ?1. Large sized perfusion abnormality of? basal to apical inferior, basal to mid ?inferolateral, apical lateral, mid anterolateral, apical anterior and apical ?sanchez with subtle reversibility in lateral wall. ?2. This is suggestive of old myocardial infarction in right coronary artery, ?circumflex artery and left anterior descending artery territory with minimal ?micki-infarct ischemia in circumflex artery territory. ?3. The left ventricular ejection fraction is moderately reduced with a value of ?37%. ?4. There is global hypokinesis more pronounced in inferior and lateral sanchez. ?5. These findings are compatible with an ischemic cardiomyopathy. 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 Patient is not a good candidate for any invasive w/u with his other co- morbidities. -This was discussed with patient and he is agreeable with the same. (4) NSTEMI (non-ST elevated myocardial infarction): Type 2 NSTEMI EKG showed sinus rhythm, IVCD, T wave inversion in anterior leads. No prior similar studies to compare. -elevated troponin likely 2/2 decompensated CHF -continue ASA, plavix, beta jose and statin. (5) Acute worsening of stage 3 chronic kidney disease: creatinine improved to 0.9 today, f/u on BMP Plan Coronary artery disease: coronary atherosclerotic calcifications on CT scan and abnormal stress test Emphysema PAD (CT abdomen 04/2022: ?Aorta and the iliac vessels appear occluded with reconstitution in the level of the femoral arteries bilaterally, likely chronic. Large left and small right pleural effusions Traumatic left rib fractures s/p SX Sacral ulcer PEM Chronic active smoker Anemia Hypokalemia DNR/DNI Thank you for allowing me to participate in patient's care. Please feel free to call with questions or concerns. Consult Attestations Time Spent in Patient Care: Greater than 35 minutes Coding Level of Care Code Acute Machine Whitener for Marisela Fwd Diagnoses Acute respiratory failure with hypoxia J96.01 Pulmonary edema J81.1 Acute exacerbation of CHF (congestive heart failure) I50.9 NSTEMI (non-ST elevated myocardial infarction) I21.4 Acute worsening of stage 3 chronic kidney disease N18.30
[2022-09-14 10:10] LABS: Partial Thromboplastin Time 106.3 SECONDS (23.9-36.7)
--- NOTE | 2022-09-14 10:40 | PC.OT ---
OT discussed patient's arousal with RN. RN requested to hold therapy at this time due to increased fatigue and lethargy. Patient had elevated troponin levels and abnormal stress test. Cardiac consult received with no further concerns reported by RN. Will attempt tx tomorrow. Indra Miramontes, OTR/L
[2022-09-14] MEDS: nicotine 14 mg Patch 1 PATCH TRANSDERMA (15:23)
[2022-09-14 15:58] LABS: Partial Thromboplastin Time 63.1 SECONDS (23.9-36.7)
[2022-09-14] MEDS: heparin drip 25,000 UNIT/500 ML PREMIX 22 UNIT IV (17:49)
--- NOTE | 2022-09-14 18:52 | P.PN_ITS ---
Subjective Subjective: He gets tired daily. Denies lightheadedness or dizziness. Some cough, not bringing up any phlegm. Vitals/I&O/Wt Last Vital Signs Temp 97.9 F 09/14/22 15:29 Pulse 67 09/14/22 18:20 Resp 24 H 09/14/22 15:29 BP 147/74 09/14/22 15:29 Pulse Ox 94 09/14/22 15:29 O2 Del Method 09/14/22 15:29 O2 Flow Rate 2 09/14/22 15:29 FiO2 2 09/13/22 19:38 09/14/22 09/14/22 09/14/22 06:59 14:59 22:59 Intake Total 308.8 / 1229.2 688.867 / 688.867 372.333 / 1061.200 Output Total 1475 / 1475 440 / 1915 Balance 308.8 / 929.2 -786.133 / -786.133 -67.667 / -853.800 Physical Exam Const: COMMON NORMALS: patient oriented x3 and alert GENERAL APPEARANCE: cooperative and frail appearing NUTRITIONAL APPEARANCE: thin ORIENTATION/CONSCIOUSNESS: Yes awake HENMT: COMMON NORMALS: oropharynx normal Neck/C-Spine: COMMON NORMALS: no JVD Resp: COMMON NORMALS: normal respiratory effort AUSCULTATION: diminished lung sounds (Slightly better air entry today.) Cardio: COMMON NORMALS: no JVD, regular rhythm, S1 normal heart sound present, S2 normal heart sound present and No murmurs present (Cardio) RHYTHM: regular rhythm HEART SOUNDS: S1 normal heart sound present and S2 normal heart sound present GI: COMMON NORMALS: Normal to inspection, nondistended, normoactive bowel sounds present, Soft to palpation and non-tender PALPATION: Yes Soft to palpation Extremity: COMMON NORMALS: no joint enlargement and no pedal edema Neuro: COMMON NORMALS: patient oriented x3 and moves all extremities SENSORIUM/ORIENTATION: Yes alert Skin: COMMON NORMALS: no rashes or lesions noted GENERAL SKIN EXAM: no rashes or lesions noted Data 09/14/22 02:30 09/14/22 02:30 Micro: Microbiology 09/11/22 18:18 Blood Culture - Final Blood Staphylococcus aureus 09/11/22 18:25 Blood Culture - Final Blood Staphylococcus aureus A&P Assessment and plan (1) Acute exacerbation of CHF (congestive heart failure): Appreciate cardiology assessment and recommendation. Continue with medical therapy. Beta-jose escalated. Added ARB. Replace potassium. For now continue Lasix IV 20 daily, reassess volume status. May be reaching euvolemia. Abnormal stress test results noted with large sized. Abnormality basal to apical inferior, basal to mid inferior lateral, apical lateral, mid anterolateral, apical anterior and sanchez with subtle reversibility anterolateral wall. Suggestive of old IN and RCA, circumflex and LAD artery territory with minimal imcki-infarct ischemia in circumflex artery territory. Concern for ischemic cardiomyopathy. EF noted 37%, although was difficult to assess, EF more normal-appearing on TTE. Appreciate cardiology evaluation recommendations. Currently continue medical therapy as ordered. Continue gentle diuresis. Monitor I&O. Electrolytes. Renal function. Oxygen support as needed. Maintain saturation 90%. With pleural effusion. Consider follow-up imaging for improvement/resolution. (2) COPD exacerbation: Acute COPD exacerbation related to CHF exacerbation and active smoking With improvement with starting prednisone. Doxycycline. Starting scheduled nebs. Better air entry today. Continue as currently. Oxygen support. Will need oxygen at discharge. (3) Pulmonary edema: As above. (4) Acute respiratory failure with hypoxia: Has just had a stress test, delay in obtaining VQ scan. Continue heparin drip empirically for now. Continue empiric anticoagulation for now. D-dimer was abnormal. Will need further assessment for PE. Currently also with ANGELA. (5) Energy protein malnutrition: Protein shakes with meals. (6) NSTEMI (non-ST elevated myocardial infarction): Appreciate cardiology assessment given abnormal stress test, acute CHF with elevated troponin on presentation. Possible ischemic cardiomyopathy. Continue aspirin, beta-jose uptitrated, statin. Continue heparin drip. No chest pain. May be demand ischemia with acute CHF, COPD exacerbation. (7) Acute worsening of stage 3 chronic kidney disease: Plan Acute on chronic kidney disease cardiorenal, anticipate improvement with diuresis. Follow-up renal function. Goals of care discussed with the patient and his , patient wishes to pursue comfort care in case of cardiac arrest he does not want any aggressive intervention History of rib fracture after traumatic injury has screws and plates left rib cage Stage II sacral ulcer present on admission, nursing care, weight offloading, offloading dressing, application of barrier cream Multiple comorbid conditions Cardiac diet Guarded prognosis Attestations Medical Necessity Statement*: Continue admission for management of acute CHF, acute COPD exacerbation. Coding Level of Care Code Acute Laboratory Animal Care Veterinarian for Chg Fwd Diagnoses Acute exacerbation of CHF (congestive heart failure) I50.9 COPD exacerbation J44.1 Pulmonary edema J81.1 Acute respiratory failure with hypoxia J96.01 Energy protein malnutrition E46 NSTEMI (non-ST elevated myocardial infarction) I21.4 Acute worsening of stage 3 chronic kidney disease N18.30
[2022-09-14] MEDS: potassium chloride ER 20 mEq Tablet PO (19:39)
[2022-09-14] MEDS: metoprolol succinate ER (24 HR) 25 mg Tablet PO (20:54)
[2022-09-14 22:30] LABS: Partial Thromboplastin Time 73.8 SECONDS (23.9-36.7)
[2022-09-15] VITALS (64 sets, daily range): BP systolic 132–157; BP diastolic 56–102; PULSE 58–93; RESP 0–33; TEMP 36.5–37.2; O2SAT 83–100
[2022-09-15 04:53] LABS: Basophils % 0.1 %; Hemoglobin 8.8 g/dL (11.7-16.6); Lymphocytes # 0.7 10^3/uL (0.8-4.8); Lymphocytes % 7.3 %; Mean Corpuscular HGB Conc 30.3 g/dL (30.0-36.0); Mean Corpuscular Hemoglobin 25.4 pg (28.0-34.0); Mean Corpuscular Volume 83.8 fl (80-94); Mean Platelet Volume 9.7 fL (7.4-10.4); Monocytes # 0.5 10^3/uL (0.2-0.9); Monocytes % 5.5 %; Neutrophils # 8.06 10^3/uL (1.8-7.7); Neutrophils % 86.7 %; Nucleated Red Blood Cells % 0 %; Platelet Count 166 10^3/cmm (130-400); Red Blood Count 3.46 10^6/uL (4.1-5.3); Red Cell Distribution Width 18.5 % (12.1-15.1); White Blood Count 9.3 10^3/uL (4.0-10.0)
[2022-09-15 05:17] LABS: Partial Thromboplastin Time 69.4 SECONDS (23.9-36.7)
[2022-09-15 05:19] LABS: Alanine Aminotransferase 31 U/L (0-41); Albumin Level 2.2 g/dL (3.5-5.2); Alkaline Phosphatase 103 U/L (40-130); Anion Gap 10.6 (5-19); Aspartate Amino Transferase 31 U/L (0-40); Blood Urea Nitrogen 29 mg/dL (8-23); Calcium 8.3 mg/dL (8.5-10.5); Carbon Dioxide 31 mmol/L (22-29); Chloride 99 mmol/L (98-107); Globulin 3.7 g/dL (1.3-4.6); Glomerular Filtration Rate 95.6 mL/min (90-130); Glucose 104 mg/dL (65-115); Osmolality Calculated 290 mOsm/kg (285-295); Potassium 3.6 mmol/L (3.5-5.1); Sodium 137 mmol/L (136-145); Total Bilirubin 0.4 mg/dL (0.15-1.2); Total Protein 5.9 g/dL (6.6-8.7)
--- NOTE | 2022-09-15 07:30 | PC.NURSE ---
pt is up in the chair for breakfast. repositioned pt q2hrs.
[2022-09-15] MEDS: clopidogrel 75 mg Tablet PO (08:01)
[2022-09-15] MEDS: doxycycline 100 mg Tablet PO ×2 (08:01→17:02)
[2022-09-15] MEDS: aspirin 81 mg EC Tablet PO (08:01)
[2022-09-15] MEDS: hyDRALAzine 25 mg Tablet PO (08:02)
[2022-09-15] MEDS: sennosides-docusate Tablet 1 TAB PO (08:02)
[2022-09-15] MEDS: nicotine 14 mg Patch 1 PATCH TRANSDERMA (08:02)
[2022-09-15] MEDS: predniSONE 20 mg Tablet 40 MG PO (08:02)
[2022-09-15] MEDS: atorvastatin 40 mg Tablet 80 MG PO (08:02)
[2022-09-15] MEDS: FUROsemide 10 mg/mL SDV 10mL 20 MG IVP (08:13)
[2022-09-15] MEDS: losartan 50 mg Tablet PO (08:13)
[2022-09-15] MEDS: metoprolol succinate ER (24 HR) 25 mg Tablet PO (08:13)
--- NOTE | 2022-09-15 09:07 | P.PN_ITS ---
Subjective Subjective: Feels better, c/o dry cough Medications: Reviewed: Yes Vitals/I&O/Wt Last Vital Signs Temp 97.7 F 09/15/22 08:50 Pulse 72 09/15/22 08:50 Resp 22 H 09/15/22 08:50 BP 142/102 09/15/22 08:50 Pulse Ox 98 09/15/22 08:26 O2 Del Method 09/15/22 08:26 O2 Flow Rate 2 09/15/22 08:26 FiO2 2 09/13/22 19:38 09/14/22 09/15/22 09/15/22 22:59 06:59 14:59 Intake Total 1081.333 / 1770.200 Output Total 640 / 2115 200 / 2315 200 / 200 Balance 441.333 / -344.800 -200 / -544.800 -200 / -200 Physical Exam Narrative: GENERAL: frail cachetic patient laying in bed in no acute distress HEENT: Extraocular movement intact. No pallor or icterus. NECK: central trachea, no JVD, No carotid bruit. CARDIOVASCULAR SYSTEM: S1-S2 regular. No murmur or gallops. RESPIRATORY SYSTEM: Chest clear to auscultation. No wheezes rhonchi or rubs heard. No use of accessory muscles. ABDOMEN: Soft, nontender and nondistended. Normal bowel sounds present. EXTREMITIES: No cyanosis or edema. No signs of chronic venous insufficiency. PROGRAM DIRECTOR/MORNING SHOW HOST: Patient is alert oriented ?3. No focal neurological deficits. SKIN: Normal turgor and temperature. PSYCH: Normal insight and judgment. 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 Patient is not a good candidate for any invasive w/u with his other co- morbidities. -This was discussed with patient and he is agreeable with the same. (4) NSTEMI (non-ST elevated myocardial infarction): Type 2 NSTEMI EKG showed sinus rhythm, IVCD, T wave inversion in anterior leads. No prior similar studies to compare. -elevated troponin likely 2/2 decompensated CHF -continue ASA, plavix, beta jose and statin. (5) Acute worsening of stage 3 chronic kidney disease: creatinine improved to 0.9 today, f/u on BMP Plan Coronary artery disease: coronary atherosclerotic calcifications on CT scan and abnormal stress test Emphysema PAD (CT abdomen 04/2022: ?Aorta and the iliac vessels appear occluded with reconstitution in the level of the femoral arteries bilaterally, likely chronic. Large left and small right pleural effusions Traumatic left rib fractures s/p SX Sacral ulcer PEM Chronic active smoker Anemia Hypokalemia DNR/DNI Thank you for allowing me to participate in patient's care. Please feel free to call with questions or concerns. Attestations Medical Necessity Statement*: As per primary team Time Spent in Patient Care: 16 - 35 minutes Coding Level of Care Code Acute Manager Housekeeping for Sergiog Fwd Diagnoses Acute respiratory failure with hypoxia J96.01 Pulmonary edema J81.1 Acute exacerbation of CHF (congestive heart failure) I50.9 NSTEMI (non-ST elevated myocardial infarction) I21.4 Acute worsening of stage 3 chronic kidney disease N18.30
--- NOTE | 2022-09-15 10:59 | P.PN_ITS ---
Subjective Subjective: He sitting up in chair. Reports he is doing okay other than feel somewhat tired. Denies chest pain. Breathing a little better. Coughing, no phlegm production. Medications: Reviewed: Yes Vitals/I&O/Wt Last Vital Signs Temp 97.7 F 09/15/22 08:50 Pulse 72 09/15/22 08:50 Resp 22 H 09/15/22 08:50 BP 142/102 09/15/22 08:50 Pulse Ox 98 09/15/22 08:26 O2 Del Method 09/15/22 08:26 O2 Flow Rate 2 09/15/22 08:26 FiO2 2 09/13/22 19:38 09/14/22 09/15/22 09/15/22 22:59 06:59 14:59 Intake Total 1081.333 / 1770.200 Output Total 640 / 2115 200 / 2315 200 / 200 Balance 441.333 / -344.800 -200 / -544.800 -200 / -200 Physical Exam Const: COMMON NORMALS: patient oriented x3 and alert GENERAL APPEARANCE: cooperative and frail appearing NUTRITIONAL APPEARANCE: thin ORIENTATION/CONSCIOUSNESS: Yes awake HENMT: COMMON NORMALS: oropharynx normal Neck/C-Spine: COMMON NORMALS: no JVD Resp: COMMON NORMALS: normal respiratory effort AUSCULTATION: diminished lung sounds (Slightly better air entry today.) Cardio: COMMON NORMALS: no JVD, regular rhythm, S1 normal heart sound present, S2 normal heart sound present and No murmurs present (Cardio) RHYTHM: regular rhythm HEART SOUNDS: S1 normal heart sound present and S2 normal heart sound present GI: COMMON NORMALS: Normal to inspection, nondistended, normoactive bowel sounds present, Soft to palpation and non-tender PALPATION: Yes Soft to palpation Extremity: COMMON NORMALS: no joint enlargement and no pedal edema Neuro: COMMON NORMALS: patient oriented x3 and moves all extremities SENSORIUM/ORIENTATION: Yes alert Skin: COMMON NORMALS: no rashes or lesions noted GENERAL SKIN EXAM: no rashes or lesions noted Data 09/15/22 04:19 09/15/22 04:19 Micro: Microbiology 09/11/22 18:18 Blood Culture - Final Blood Staphylococcus aureus 09/11/22 18:25 Blood Culture - Final Blood Staphylococcus aureus A&P Assessment and plan (1) Acute respiratory failure with hypoxia: Dyspnea, dry cough. Follow-up VQ scan. Empiric anticoagulation, discontinue if no PE. Hemoglobin decreased down to 8.8. Follow-up blood count. Has just had a stress test, delay in obtaining VQ scan. Continue heparin drip empirically for now. Continue empiric anticoagulation for now. D-dimer was abnormal. Will need further assessment for PE. Currently also with ANGELA. (2) Acute exacerbation of CHF (congestive heart failure): Appreciate cardiology assessment and recommendation. Transition to oral diuretic. Abnormal stress test results noted with large sized. Abnormality basal to apical inferior, basal to mid inferior lateral, apical lateral, mid anterolateral, apical anterior and sanchez with subtle reversibility anterolateral wall. Suggestive of old MA and RCA, circumflex and LAD artery territory with minimal micki-infarct ischemia in circumflex artery territory. Concern for ischemic cardiomyopathy. EF noted 37%, although was difficult to assess, EF more normal-appearing on TTE. Appreciate cardiology evaluation recommendations. Currently continue medical therapy as ordered. Continue gentle diuresis. Monitor I&O. Electrolytes. Renal function. Oxygen support as needed. Maintain saturation 90%. With pleural effusion. Consider follow-up imaging for improvement/resolution. (3) COPD exacerbation: Acute COPD exacerbation related to CHF exacerbation and active smoking With some improvement in symptoms and air entry with starting prednisone. Doxycycline. Starting scheduled nebs. Better air entry today. Continue as currently. Oxygen support. Will need oxygen at discharge. (4) Pulmonary edema: As above. (5) Energy protein malnutrition: Protein shakes with meals. (6) NSTEMI (non-ST elevated myocardial infarction): Appreciate cardiology assessment given abnormal stress test, acute CHF with elevated troponin on presentation. Possible ischemic cardiomyopathy. Continue aspirin, beta-jose uptitrated, statin. Continue heparin drip. No chest pain. May be demand ischemia with acute CHF, COPD exacerbation. (7) Acute worsening of stage 3 chronic kidney disease: Plan Acute on chronic kidney disease cardiorenal, anticipate improvement with di uresis. Follow-up renal function. Goals of care discussed with the patient and his , patient wishes to pursue comfort care in case of cardiac arrest he does not want any aggressive intervention History of rib fracture after traumatic injury has screws and plates left rib cage Stage II sacral ulcer present on admission, nursing care, weight offloading, offloading dressing, application of barrier cream Multiple comorbid conditions Cardiac diet Guarded prognosis Attestations Medical Necessity Statement*: Continue assessment regarding respiratory failure, hypoxia, assessment for PE, to allow discontinuation of anticoagulation, treatment of COPD exacerbation, acute CHF. Disposition planning arrangements. Coding Level of Care Code Acute Die Sinker Apprentice for Marisela Gregorio Diagnoses Acute respiratory failure with hypoxia J96.01 Acute exacerbation of CHF (congestive heart failure) I50.9 COPD exacerbation J44.1 Pulmonary edema J81.1 Energy protein malnutrition E46 NSTEMI (non-ST elevated myocardial infarction) I21.4 Acute worsening of stage 3 chronic kidney disease N18.30
[2022-09-15] MEDS: polyethylene glycol 3350 Pkt 17 gm PO ×2 (11:20→20:31)
[2022-09-15] MEDS: potassium chloride ER 20 mEq Tablet PO (11:20)
--- NOTE | 2022-09-15 11:25 | XR_ITS ---
WS: [id number] Exam: XR chest 1V portable [id number] Date/Time of Exam: 09/15/2022 11:25 AM Reason For Exam: reassess effusion Comparison 09/11/2022. Prominent left pleural effusion noted showing little change since the prior study. There is also smal l right basal pleural effusion noted. This is also unchanged. There are diffuse interstitial infiltra shira throughout both lungs. Heart size is normal. The mediastinum is normal in contour. There is plate and screw fixation of multiple left-sided rib fractures. No pneumothorax is seen. Compressive atelec tasis left lower lobe unchanged. XR/XR chest 1V portable [id number] IMPRESSION: 1. Bilateral pleural effusions present larger on the left. Very little change s say the last exam. 2. Diffuse interstitial infiltrates throughout both lungs unchanged. 3. Plate and screw fixation of multiple left rib fractures from the fourth to t he ninth ribs. No pneumothorax.
[2022-09-15 12:27] LABS: Partial Thromboplastin Time 62.3 SECONDS (23.9-36.7)
[2022-09-15] MEDS: ipratropium-albuterol 3 mL Neb INHALATION ×2 (13:39→21:43)
[2022-09-15] MEDS: vancomycin 750 MG in sodium chloride 0.9% 250 ML 250 MG IV (14:47)
--- NOTE | 2022-09-15 15:05 | NM_ITS ---
WS: [id number] NUCLEAR MEDICINE VENTILATION/PERFUSION LUNG SCAN HISTORY: assess for pe COMPARISON: Chest radiograph 09/11/2022 TECHNIQUE: Ventilation: 26.1 mCi of Technetium 99 DTPA aerosol inhaled. Perfusion: 4.6 mCi of technetium 99m MAA IV. Significant abnormalities are noted on the ventilatory and perfusion portions of the exam. Greater ai rspace disease and heterogeneity involving the ventilation. There is very little ventilation to the L EFT lung. Perfusion is improved as compared to the ventilation. There are bilateral matched and unmat ched defects. Much worse on ventilation. NM/NM pul vent and perfus* [id number] IMPRESSION: Indeterminate probability for pulmonary embolism. Heterogeneous abnormalities o n both the perfusion and ventilation. Patient has known significant chronic jose cruz g disease with pleural effusions and hardware in the ribs.
--- NOTE | 2022-09-15 15:20 | US_ITS ---
WS: [id number] ULTRASOUND SOFT TISSUES upper mid back. HISTORY: L upper lateral back soft tissue swelling COMPARISON: None available. TECHNIQUE: 2-D and color Doppler imaging is submitted. Patient directed to the upper mid back. As the hyperechoic soft tissue nodule measuring 4.6 cm in kassidy gth by 4.5 x 1.0 cm. No increased vascularity. This is most typical for lipoma. US/US soft tissue/extremity [id number] IMPRESSION: Soft tissue nodule along the posterior upper back is most consistent with a lip vasiliy.
--- NOTE | 2022-09-15 15:21 | USCV_ITS ---
Samuel Dale Age: 72 Gender: M : 1950 Exam Date: 09/15/2022 15:43 Ordering Phys: Moo Zapata MD Technologist: THERESE Exam Location: [facility] – [place] Indication: Leg Pain HISTORY: Lower extremity pain. PROCEDURES: Venous duplex imaging was performed in only the right lower extremity. The following venous structures were evaluated: common femoral vein, profunda vein, proximal portion of the greater saphenous vein, superficial femoral vein, and the popliteal vein. In addition, the posterior tibial and peroneal trunk were evaluated. Serial compression, augmentation maneuvers, and spectral Doppler flow evaluation were performed. FINDINGS: Normal 2-D Doppler and augmentation and compressibility throughout the lower extremity venous structures. Additional imaging through the proximal calf veins also reveals no thrombus. Limited evaluation of the greater saphenous vein is patent with no thrombus. CONCLUSIONS No DVT right lower extremity. Dr. Shirley Avelar DO (Electronically Signed) Final Date: 15 September 2022 16:16 S
[2022-09-15] MEDS: heparin drip 25,000 UNIT/500 ML PREMIX 22 UNIT IV (18:28)
[2022-09-15 18:41] LABS: Partial Thromboplastin Time 52.3 SECONDS (23.9-36.7)
[2022-09-15] MEDS: heparin 5,000 unit/mL INJ 1 mL IV (20:01)
[2022-09-15 20:28] LABS: Hemoglobin 9.3 g/dL (11.7-16.6)
[2022-09-15] MEDS: metoprolol succinate ER (24 HR) 50 mg Tablet PO (21:58)
[2022-09-16] VITALS (15 sets, daily range): BP systolic 122–165; BP diastolic 73–92; PULSE 60–77; RESP 13–35; TEMP 36.5–37.2; O2SAT 94–100
--- NOTE | 2022-09-16 00:01 | US_ITS ---
WS: [id number] INDICATION: Pleural effusion. Bacteremia. TECHNIQUE: Ultrasound LEFT chest FINDINGS: Ultrasound LEFT chest. Minimal visualized pleural fluid. Increased echogenic density within the LEFT lower lobe may represents consolidated hematoma considering recent chest tube with rib frac tures. Atelectasis LEFT lower lobe. Recommend further evaluation with chest CT for better anatomic de tail. US/US chest [id number] IMPRESSION: Increased echogenic density within the LEFT lower lobe may represen ts consolidated hematoma considering recent chest tube with rib fractures. Paul mmend further evaluation with chest CT for better anatomic detail. Discussed with Moo Zapata MD at 09/16/2022 9:23 AM.
[2022-09-16] MEDS: vancomycin 750 MG in sodium chloride 0.9% 250 ML 250 MG IV ×2 (00:26→13:39)
[2022-09-16 02:39] LABS: Basophils % 0.1 %; Hematocrit 28.6 % (42.0-52.0); Hemoglobin 8.7 g/dL (11.7-16.6); Lymphocytes # 0.6 10^3/uL (0.8-4.8); Lymphocytes % 5.8 %; Mean Corpuscular HGB Conc 30.4 g/dL (30.0-36.0); Mean Corpuscular Hemoglobin 25.7 pg (28.0-34.0); Mean Corpuscular Volume 84.4 fl (80-94); Mean Platelet Volume 10.1 fL (7.4-10.4); Monocytes # 0.4 10^3/uL (0.2-0.9); Monocytes % 4.3 %; Neutrophils # 8.55 10^3/uL (1.8-7.7); Neutrophils % 89.5 %; Nucleated Red Blood Cells % 0 %; Platelet Count 193 10^3/cmm (130-400); Red Blood Count 3.39 10^6/uL (4.1-5.3); Red Cell Distribution Width 18.3 % (12.1-15.1); White Blood Count 9.6 10^3/uL (4.0-10.0)
[2022-09-16 02:56] LABS: Partial Thromboplastin Time 76.5 SECONDS (23.9-36.7)
[2022-09-16 03:05] LABS: Alanine Aminotransferase 78 U/L (0-41); Alkaline Phosphatase 111 U/L (40-130); Anion Gap 12.5 (5-19); Aspartate Amino Transferase 102 U/L (0-40); Blood Urea Nitrogen 34 mg/dL (8-23); Calcium 8.1 mg/dL (8.5-10.5); Carbon Dioxide 29 mmol/L (22-29); Chloride 97 mmol/L (98-107); Globulin 3.7 g/dL (1.3-4.6); Glomerular Filtration Rate 111.5 mL/min (90-130); Glucose 135 mg/dL (65-115); Osmolality Calculated 290 mOsm/kg (285-295); Potassium 3.5 mmol/L (3.5-5.1); Sodium 135 mmol/L (136-145); Total Bilirubin 0.3 mg/dL (0.15-1.2); Total Protein 5.7 g/dL (6.6-8.7)
[2022-09-16] MEDS: ipratropium-albuterol 3 mL Neb INHALATION ×3 (07:21→19:32)
[2022-09-16] MEDS: metoprolol succinate ER (24 HR) 50 mg Tablet PO ×2 (09:22→21:07)
[2022-09-16] MEDS: predniSONE 20 mg Tablet 40 MG PO (09:22)
[2022-09-16] MEDS: doxycycline 100 mg Tablet PO ×2 (09:22→17:40)
[2022-09-16] MEDS: sennosides-docusate Tablet 1 TAB PO (09:22)
[2022-09-16] MEDS: atorvastatin 40 mg Tablet 80 MG PO (09:22)
[2022-09-16] MEDS: clopidogrel 75 mg Tablet PO (09:23)
[2022-09-16] MEDS: potassium chloride ER 20 mEq Tablet PO (09:23)
[2022-09-16] MEDS: losartan 50 mg Tablet PO (09:23)
[2022-09-16] MEDS: hyDRALAzine 25 mg Tablet PO ×3 (09:23→21:07)
[2022-09-16] MEDS: aspirin 81 mg EC Tablet PO (09:23)
[2022-09-16] MEDS: FUROsemide 40 mg Tablet PO (09:23)
[2022-09-16 09:24] LABS: Partial Thromboplastin Time 38.3 SECONDS (23.9-36.7)
[2022-09-16] MEDS: nicotine 14 mg Patch 1 PATCH TRANSDERMA (09:24)
--- NOTE | 2022-09-16 10:34 | CT_ITS ---
WS: [id number] CT CHEST WITH INTRAVENOUS CONTRAST HISTORY: effusion, bacteremia TECHNIQUE: Contiguous 5 mm axial imaging performed on the thorax. Coronal and sagittal reformats are submitted. All CT scans at [facility] use at least one of these dose optimization techniques: automated exposure control; mA and/or kV adjustment per patient size (includes targeted exams where dose is matched to clinical indication); or iterative reconstruction. CONTRAST: Omnipaque 350; 95 mL IV. DLP: 249.61 mGy.cm COMPARISON: 05/18/2022 Lungs and central airway: Severe chronic emphysema. Bullous emphysematous emphysema. Compressive atel ectasis at the lung bases due to bilateral pleural effusions. Moderate bilateral pleural effusions, L EFT greater than RIGHT. No focal area of pneumonia. Pleura: Bilateral pleural effusions, moderate. LEFT greater than RIGHT. There is very mild enhancemen t of the LEFT pleura. Heart and pericardium: Normal size heart. Mediastinum and fco: No mediastinum or hilar adenopathy. Vessels: Extensive atherosclerosis of the aorta. Mild pulmonary hypertension. Proximal LEFT subclavia n artery appears occluded. Distal subclavian fills by retrograde LEFT vertebral artery most likely. Chest wall and lower neck: No soft tissue masses. Upper abdomen: Incomplete opacification of the abdominal aorta below the level of the SMA. Known aort ic occlusion seen on 05/18/2022. Hepatic cysts. Stomach is distended with oral contrast. Osseous structures: Plate and screw fixation multiple rib fractures LEFT thorax. CT/CT chest w con* [id number] IMPRESSION: 1. Moderate-sized bilateral pleural effusions, LEFT greater than RIGHT. Mild e nhancement of the LEFT pleura. Enhancement of the pleura can be seen with empye ma. 2. Compressive atelectasis at the lung bases due to the effusions. 3. Chronic bullous emphysema. 4. Occluded proximal LEFT subclavian artery. Reconstitution distally is probab ly due to retrograde LEFT vertebral artery. 5. Occluded, abdominal aorta. Previously described on 05/18/2022. Notified Moo Zapata MD at 09/16/2022 2:55 PM.
[2022-09-16] MEDS: iohexol 350 mg/mL 500 mL Btl (per mL) IV (14:41)
--- NOTE | 2022-09-16 14:55 | US_ITS ---
WS: [id number] ULTRASOUND-GUIDED THORACENTESIS, LEFT HISTORY: SA bacteremia Procedure, risks, and complications were explained to the patient. Consent obtained from the patient' s prior With the patient in an upright position, the skin over the LEFT posterior thorax was brendan ansed with ChloraPrep and anesthetized with 1% buffered lidocaine. A 5 Icelandic Yueh needle is inserted into the pleural fluid without complication. Approximately 400 cc of opaque significant brain pleura l fluid is removed without difficulty. Pleural fluid specimen sent for analysis as requested. / thoracentesis [id number] IMPRESSION: 1. LEFT thoracentesis yielding 400 cc of fluid. Thick aspirate consistent with abscess. 2. Chest radiograph to follow to evaluate for pneumothorax.
--- NOTE | 2022-09-16 16:37 | XR_ITS ---
WS: [id number] PORTABLE CHEST HISTORY: Thoracentesis, LEFT COMPARISON: 09/15/2022 Status post LEFT thoracentesis. No pneumothorax. Slight reduction in size of the LEFT pleural effusio n. Small bilateral pleural effusions. Cardiac size: Normal. Mediastinum/Aorta: Mild atherosclerosis aorta. Plate and screw fixation multiple left-sided rib fractures. XR/XR chest 1V portable [id number] IMPRESSION: 1. Status post LEFT thoracentesis. No pneumothorax. 2. Improved but persistent LEFT pleural effusion.
--- NOTE | 2022-09-16 17:04 | PC.SOCIAL ---
IMM Update pg 2 of IMM updated and reviewed w/ patient. Copy provided and Copy in chart dated, and initialed.
[2022-09-16 18:54] LABS: Body Fluid WBC 13745 /uL; Monocytes # Body Fluid 3.055
[2022-09-16 18:57] LABS: Color, Body Fluid YELLOW
[2022-09-16 18:58] LABS: Albumin Body Fluid 0.2 g/dL; Apprearance, Body Fluid TURBID; Cholesterol Body Fluid 7 mg/dL (0-200); Triglycerides Body Fluid 38 mg/dL (0-150)
[2022-09-16 18:59] LABS: Body Fluid Specific Gravity 1.015; PATH Referral YES; Total Protein Pleural Fluid 1.6 g/dL
[2022-09-16 19:01] LABS: Cyto Order Verification Order Verified
--- NOTE | 2022-09-16 20:00 | PC.NURSE ---
Called from [facility] for update. They said there is no bed available yet and may not have a bed for a few days.
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
[2022-09-16] MEDS: ceFOXitin 2,000 MG in sodium chloride 0.9% (plus) 50 ML 100 MG IV (21:06)
[2022-09-16] MEDS: enoxaparin 40 mg/0.4 mL Syringe SUBCUT (21:44)
--- NOTE | 2022-09-16 22:15 | PC.NURSE ---
Patient transferred to [facility] room 256-2, transferred with chart, meds and in bed. Report was called to Wilma.
[2022-09-17] VITALS (8 sets, daily range): BP systolic 146–160; BP diastolic 63–84; PULSE 61–96; RESP 15–17; TEMP 36.6–36.8; O2SAT 91–99
[2022-09-17 00:28] LABS: Vancomycin Trough 13.5 ug/mL (10-15)
[2022-09-17] MEDS: vancomycin 750 MG in sodium chloride 0.9% 250 ML 250 MG IV ×2 (00:40→13:31)
[2022-09-17] MEDS: ceFOXitin 2,000 MG in sodium chloride 0.9% (plus) 50 ML 100 MG IV ×4 (02:03→20:26)
[2022-09-17] MEDS: ipratropium-albuterol 3 mL Neb INHALATION ×3 (03:09→20:51)
[2022-09-17 05:11] LABS: Basophils % 0.1 %; Hematocrit 31.6 % (42.0-52.0); Hemoglobin 9.8 g/dL (11.7-16.6); Lymphocytes # 0.5 10^3/uL (0.8-4.8); Lymphocytes % 5.3 %; Mean Corpuscular Hemoglobin 25.9 pg (28.0-34.0); Mean Corpuscular Volume 83.6 fl (80-94); Mean Platelet Volume 9.8 fL (7.4-10.4); Monocytes # 0.2 10^3/uL (0.2-0.9); Monocytes % 2.6 %; Neutrophils # 8.06 10^3/uL (1.8-7.7); Neutrophils % 91.4 %; Nucleated Red Blood Cells % 0 %; Platelet Count 247 10^3/cmm (130-400); Red Blood Count 3.78 10^6/uL (4.1-5.3); Red Cell Distribution Width 18.9 % (12.1-15.1); White Blood Count 8.8 10^3/uL (4.0-10.0)
[2022-09-17 05:29] LABS: Alanine Aminotransferase 122 U/L (0-41); Albumin Level 2.3 g/dL (3.5-5.2); Alkaline Phosphatase 107 U/L (40-130); Anion Gap 9.2 (5-19); Aspartate Amino Transferase 107 U/L (0-40); Blood Urea Nitrogen 35 mg/dL (8-23); Calcium 8.1 mg/dL (8.5-10.5); Carbon Dioxide 30 mmol/L (22-29); Chloride 99 mmol/L (98-107); Globulin 3.6 g/dL (1.3-4.6); Glomerular Filtration Rate 95.6 mL/min (90-130); Glucose 107 mg/dL (65-115); Osmolality Calculated 286 mOsm/kg (285-295); Potassium 4.2 mmol/L (3.5-5.1); Sodium 134 mmol/L (136-145); Total Bilirubin 0.4 mg/dL (0.15-1.2); Total Protein 5.9 g/dL (6.6-8.7)
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
[2022-09-17] MEDS: nicotine 14 mg Patch 1 PATCH TRANSDERMA (10:23)
[2022-09-17] MEDS: hyDRALAzine 25 mg Tablet PO ×3 (10:23→21:48)
[2022-09-17] MEDS: atorvastatin 40 mg Tablet 80 MG PO (10:24)
[2022-09-17] MEDS: clopidogrel 75 mg Tablet PO (10:24)
[2022-09-17] MEDS: losartan 50 mg Tablet PO (10:24)
[2022-09-17] MEDS: metoprolol succinate ER (24 HR) 50 mg Tablet PO ×2 (10:24→21:48)
[2022-09-17] MEDS: aspirin 81 mg EC Tablet PO (10:24)
[2022-09-17] MEDS: FUROsemide 40 mg Tablet PO (10:25)
[2022-09-17] MEDS: potassium chloride ER 20 mEq Tablet PO (10:25)
[2022-09-17] MEDS: sennosides-docusate Tablet 1 TAB PO (10:25)
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
[2022-09-17] MEDS: ondansetron 2 mg/ML SDV 2 mL 4 MG IVP (20:01)
[2022-09-17] MEDS: enoxaparin 40 mg/0.4 mL Syringe SUBCUT (20:27)
[2022-09-17] MEDS: temazepam 15 mg Capsule PO (21:48)
[2022-09-18] VITALS: BP 138/69; PULSE 69; RESP 17; TEMP 36.8
--- NOTE | 2022-09-18 00:59 | PC.NURSE ---
Patient refuses his tele and the rest of his vitals to be taken. Nurse notified. Will try again after patient sleeps some.
[2022-09-18] MEDS: vancomycin 750 MG in sodium chloride 0.9% 250 ML 250 MG IV (01:26)
[2022-09-18 01:51] VITALS: O2SAT 100
[2022-09-18] MEDS: ceFOXitin 2,000 MG in sodium chloride 0.9% (plus) 50 ML 100 MG IV (02:46)
--- NOTE | 2022-09-18 02:49 | PC.NURSE ---
Patient was found to be removing all his telemetry and oxygen when entering room. The patient stated he wasn't wearing it anymore and did not need it. this nurse tried to explain the need and patient continued to refuse. so telemetry was removed, but oxygen was not. after some persuasion the patient agreed to wear it.
[2022-09-18 04:00] VITALS: BP 142/69; PULSE 67; RESP 17; TEMP 36.4; O2SAT 90
[2022-09-18 05:23] LABS: Basophils % 0.2 %; Eosinophils % 0.2 %; Hemoglobin 10.4 g/dL (11.7-16.6); Lymphocytes % 8.1 %; Mean Corpuscular HGB Conc 29.7 g/dL (30.0-36.0); Mean Corpuscular Hemoglobin 25.4 pg (28.0-34.0); Mean Corpuscular Volume 85.4 fl (80-94); Mean Platelet Volume 9.3 fL (7.4-10.4); Monocytes # 0.9 10^3/uL (0.2-0.9); Monocytes % 7.3 %; Neutrophils # 9.87 10^3/uL (1.8-7.7); Neutrophils % 83.8 %; Nucleated Red Blood Cells % 0 %; Platelet Count 291 10^3/cmm (130-400); Red Cell Distribution Width 19.1 % (12.1-15.1); White Blood Count 11.8 10^3/uL (4.0-10.0)
[2022-09-18 05:44] LABS: Alanine Aminotransferase 108 U/L (0-41); Albumin Level 2.2 g/dL (3.5-5.2); Alkaline Phosphatase 99 U/L (40-130); Anion Gap 12.5 (5-19); Aspartate Amino Transferase 65 U/L (0-40); Blood Urea Nitrogen 36 mg/dL (8-23); Calcium 8.3 mg/dL (8.5-10.5); Carbon Dioxide 31 mmol/L (22-29); Chloride 101 mmol/L (98-107); Globulin 3.6 g/dL (1.3-4.6); Glomerular Filtration Rate 73.9 mL/min (90-130); Glucose 77 mg/dL (65-115); Osmolality Calculated 297 mOsm/kg (285-295); Potassium 4.5 mmol/L (3.5-5.1); Sodium 140 mmol/L (136-145); Total Bilirubin 0.5 mg/dL (0.15-1.2); Total Protein 5.8 g/dL (6.6-8.7)
[2022-09-18 08:00] VITALS: BP 155/81; PULSE 70; RESP 16; TEMP 36.3; O2SAT 100
[2022-09-18 08:15] VITALS: PULSE 70; RESP 16; O2SAT 97
[2022-09-18] MEDS: ipratropium-albuterol 3 mL Neb INHALATION (08:15)
[2022-09-18] MEDS: ceFOXitin 2,000 MG in sodium chloride 0.9% (plus) 50 ML 1 MG IV (08:32)
[2022-09-18] MEDS: clopidogrel 75 mg Tablet PO (09:09)
[2022-09-18] MEDS: sennosides-docusate Tablet 1 TAB PO (09:09)
[2022-09-18] MEDS: potassium chloride ER 10 mEq Tablet PO (09:09)
[2022-09-18] MEDS: aspirin 81 mg EC Tablet PO (09:09)
[2022-09-18] MEDS: losartan 50 mg Tablet PO (09:10)
[2022-09-18] MEDS: polyethylene glycol 3350 Pkt 17 gm PO (09:10)
[2022-09-18] MEDS: nicotine 14 mg Patch 1 PATCH TRANSDERMA (09:10)
[2022-09-18] MEDS: hyDRALAzine 25 mg Tablet PO (09:10)
[2022-09-18] MEDS: FUROsemide 20 mg Tablet PO (09:11)
[2022-09-18] MEDS: metoprolol succinate ER (24 HR) 50 mg Tablet PO (09:19)
[2022-09-18 12:00] VITALS: BP 122/7; PULSE 71; RESP 15; TEMP 36.8; O2SAT 94
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
== END 2022-09-18 14:04 | disposition short-term general hospital (02) | DRG 177 ==
LOC: ER 20:19 → CSU 20:30 → MEDSURG 09-16 22:23
PROVIDERS: Nurse Practitioner Family; Admitting Provider Internal Medicine; Emergency Provider Emergency Medicine; Visit Provider Internal Medicine
DX: J86.9 Pyothorax without fistula (principal); E43 Unspecified severe protein-calorie malnutrition; I21.4 Non-ST elevation (NSTEMI) myocardial infarction; L89.153 Pressure ulcer of sacral region, stage 3; I50.31 Acute diastolic (congestive) heart failure; J96.01 Acute respiratory failure with hypoxia; I13.0 Hypertensive heart and chronic kidney disease with heart failure and stage 1 through stage 4 chronic kidney disease, or unspecified chronic kidney disease; Z16.11 Resistance to penicillins; Z68.1 Body mass index [BMI] 19.9 or less, adult; I74.09 Other arterial embolism and thrombosis of abdominal aorta; N17.9 Acute kidney failure, unspecified; N18.30 Chronic kidney disease, stage 3 unspecified; B95.61 Methicillin susceptible Staphylococcus aureus infection as the cause of diseases classified elsewhere; J43.9 Emphysema, unspecified; F17.200 Nicotine dependence, unspecified, uncomplicated; I25.2 Old myocardial infarction; I73.9 Peripheral vascular disease, unspecified; I77.1 Stricture of artery; Z98.890 Other specified postprocedural states; S22.49XS Multiple fractures of ribs, unspecified side, sequela; V89.2XXS Person injured in unspecified motor-vehicle accident, traffic, sequela; E87.6 Hypokalemia; D64.9 Anemia, unspecified; I25.5 Ischemic cardiomyopathy; Z66 Do not resuscitate; I16.0 Hypertensive urgency; Z79.51 Long term (current) use of inhaled steroids; B95.62 Methicillin resistant Staphylococcus aureus infection as the cause of diseases classified elsewhere; L89.892 Pressure ulcer of other site, stage 2
CPT/HCPCS: 32555; 36415; 36600; 71045; 71260; 76604; 76882; 78014; 78452; 80048; 80053; 80202; 80503; 82042; 82465; 82607; 82803; 82945; 83036; 83605; 83615; 83735; 83880; 83986; 84100; 84145; 84157; 84315; 84443; 84478; 84484; 85018; 85025; 85049; 85378; 85730; 86140; 87040; 87070; 87075; 87077; 87102; 87186; 87205; 87206; 87426; 87641; 87804; 88108; 88305; 89050; 90732; 93005; 93017; 93306; 93971; 94640; 94660; 94664; 96372; 96374; 96375; 97110; 97116; 97161; 97167; 97530; 99285; A9500; A9540; A9567; J0694; J1644; J1650; J1940; J2405; J2785; J2930; J3370; J7050; J7512; Q9967

== ENCOUNTER 2022-11-28 05:48 | Inpatient (IN) | payer MEDICARE, SELFPAY ==
[2022-11-28] VITALS (77 sets, daily range): BP systolic 75–181; BP diastolic 41–110; PULSE 49–86; RESP 0–31; TEMP 36.7–36.8; O2SAT 5–100; BMI 19.9
--- NOTE | 2022-11-28 05:56 | XRR_ITS ---
PROCEDURE INFORMATION: Exam: XR Chest Exam date and time: 11/28/2022 6:10 AM Age: 72 years old Clinical indication: Cough and dyspnea; Additional info: Dyspnea/cough TECHNIQUE: Imaging protocol: Radiologic exam of the chest. Views: 1 view. COMPARISON: CR XR chest 1V portable [id number] 09/16/2022 4:42 PM FINDINGS: Lungs: Bibasilar ground-glass densities may be consistent with atelectasis, pneumonia or related to pleural effusions. Pleural spaces: Small bilateral pleural effusions. The left-sided pleural effusion is likely partially loculated. Heart/Mediastinum: The cardiomediastinal silhouette is within normal limits. Bones/joints: Surgical hardware in the left ribs. XR/XR chest 1V portable [id number] IMPRESSION: 1. Small bilateral pleural effusions. 2. Bibasilar ground-glass densities may be consistent with atelectasis, pneumonia, or related to pleural effusions.
--- NOTE | 2022-11-28 06:13 | W.ED.SOB ---
HPI - SOB/Dyspnea General: Chief Complaint: Shortness of Breath/Dyspnea Stated Complaint: SOB Time Seen by Provider: 11/28/22 05:55 Source: patient Mode of arrival: EMS History of Present Illness: HPI Narrative: 72-year-old [facility] with complaints of shortness of breath. Arrives via EMS. He is requiring 6 L by nasal cannula, he has been on 4 L/min since discharge from his hospitalization in [place]. He has a history of A-fib with RVR congestive heart failure, COPD. In route he received albuterol and steroids. [facility] after recently being hospitalized [place] for pneumothorax. While there he had fixation on 2 ribs per his report. He notes increasing swelling in his lower extremities and weakness of his lower extremities. Denies chest pain MD elicited complaint: shortness of breath Pertinent past history: COPD and congestive heart failure Onset (ago): week(s) Context: recent illness Timing: constant Severity: severe Exacerbating factors: lying flat, exertion and coughing Relieving factors: oxygen, rest and upright position Known history of: COPD and congestive heart failure Associated symptoms: Reports abdominal pain; Deny chest congestion, chest pain, cough, diaphoresis, dizziness, extremity pain, fever(s), hemoptysis, lightheadedness, myalgias, nausea, orthopnea, palpitations, paresthesias, polydipsia, polyuria, rash, sense of impending doom, syncope or vomiting Treatment prior to arrival: oxygen, bronchodilator and other (steriods) Review of Systems Const: Reports: fatigue and malaise; Denies: fever(s), chills or diaphoresis ENMT: Denies: throat pain, ear or mastoid pain, nasal discharge or nasal congestion Card: Denies: chest pain, palpitations, lightheadedness, syncope or orthopnea Resp: Denies: hemoptysis or chest congestion GI: Reports: abdominal pain; Denies: nausea or vomiting : Denies: flank pain, dysuria, urinary frequency or urinary urgency Musc: Denies: extremity pain Skin/Breast: Denies: rash or pruritus Neuro: Denies: dizziness Endo: Denies: polyuria or polydipsia PFS ED PFSH: Medical History (Updated 11/28/22 @ 12:55 by Ash Hwang DO) Abrasion of arm, left BPH (benign prostatic hyperplasia) COPD (chronic obstructive pulmonary disease) Coronary artery disease Depression with anxiety HTN (hypertension) Hyperlipidemia 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 Peripheral vascular disease Pleural fistula Protein calorie malnutrition Rib cage dysfunction Rib fracture Trauma Surgical History No pertinent past surgical history Traumatic rib fracture status post reconstructive plates and screws left for benign Family History (Updated 11/28/22 @ 10:12 by Stiven Polanco MD) Other Cancer Denies family history of CAD (coronary artery disease) Social History (Updated 11/28/22 @ 10:12 by Stiven Polanco MD) Smoking and tobacco status: former smoker Alcohol intake: never Household members: spouse Physical Exam Const: GENERAL APPEARANCE: cooperative and comfortable ORIENTATION/CONSCIOUSNESS: Yes awake, Yes oriented to person, Yes oriented to place and Yes oriented to time HENMT: COMMON NORMALS: normocephalic, atraumatic and hearing grossly normal bilaterally HEAD & SCALP: normocephalic and atraumatic Resp: AUSCULTATION: rhonchi and wheezes Cardio: COMMON NORMALS: regular rate, regular rhythm and No murmurs present (Cardio) RATE: regular rate RHYTHM: regular rhythm GI: COMMON NORMALS: Soft to palpation and No hepatosplenomegaly present AUSCULTATION: Yes normoactive bowel sounds PALPATION: Yes Soft to palpation, No Tenderness to palpation present (GI), No Guarding due to palpation present (GI) and Yes No hepatosplenomegaly present Extremity: COMMON NORMALS: normal to inspection, capillary refill normal, no clubbing, cyanosis or edema, no calf tenderness and no pedal edema Neuro: SENSORIUM/ORIENTATION: Yes oriented to person, Yes oriented to place and Yes oriented to time Skin: COMMON NORMALS: no rashes or lesions noted GENERAL SKIN EXAM: no rashes or lesions noted Course Vital Signs: Vital signs: Vital Signs Temperature 98.1 F 11/28/22 05:51 Pulse Rate 65 11/28/22 12:45 Respiratory Rate 19 H 11/28/22 12:45 Blood Pressure 151/110 11/28/22 12:45 Pulse Oximetry 94 11/28/22 12:45 Oxygen Delivery Me thod 11/28/22 10:20 Oxygen Flow Rate 5 11/28/22 10:20 MDM - SOB/Dyspnea Medical Decision Making CTA shows PE. Which explains his new oxygen deficit. Initially arrived using 6 L/min were able to titrate that down to 5 L/min and emergency room. Normally he uses 4 L/min. He was given 40 mg IV Lasix in the emergency room when she did good output from did slightly improve his symptoms. He does have fairly significant anemia and discussed with Dr. Clemens for the hospitalist service they are going to start him on Lovenox monitor stools and lab work. Orders written. Medical Records I reviewed the patient's medical records. Lab Data I reviewed the patient's lab results. 11/28/22 06:36 11/28/22 06:36 Labs/Radiology: Radiology Impressions Chest X-Ray 11/28/22 05:56 IMPRESSION: 1. Small bilateral pleural effusions. 2. Bibasilar ground-glass densities may be consistent with atelectasis, pneumonia, or related to pleural effusions. Chest CTA 11/28/22 07:25 IMPRESSION: 1. Moderate RIGHT and small LEFT pleural effusions. Enhancing LEFT pleural effusion can be seen with empyema unchanged. RIGHT pleural effusion increased from previous. 2. Small filling defects in the RIGHT middle lobe and RIGHT lower lobe pulmonary arteries compatible with acute pulmonary embolus. 3. No other changes compared to previous Notified Ash Hwang DO at 11/28/2022 9:47 AM. Laboratory Results WBC 8.2 10^3/uL (4.0-10.0) 11/28/22 06:36 RBC 2.54 10^6/uL (4.1-5.3) L 11/28/22 06:36 Hgb 8.0 g/dL (11.7-16.6) L 11/28/22 06:36 Hct 26.3 % (42.0-52.0) L 11/28/22 06:36 MCV 103.5 fl (80-94) H 11/28/22 06:36 MCH 31.5 pg (28.0-34.0) 11/28/22 06:36 MCHC 30.4 g/dL (30.0-36.0) 11/28/22 06:36 RDW 17.5 % (12.1-15.1) H 11/28/22 06:36 Plt Count 242 10^3/cmm (130-400) 11/28/22 06:36 MPV 9.3 fL (7.4-10.4) 11/28/22 06:36 Neut % (Auto) 84.6 % 11/28/22 06:36 Lymph % (Auto) 10.9 % 11/28/22 06:36 Childress % (Auto) 4.2 % 11/28/22 06:36 Eos % (Auto) 0.0 % 11/28/22 06:36 Baso % (Auto) 0.2 % 11/28/22 06:36 Neut # (Auto) 6.89 10^3/uL (1.8-7.7) 11/28/22 06:36 Lymph # (Auto) 0.9 10^3/uL (0.8-4.8) 11/28/22 06:36 Childress # (Auto) 0.3 10^3/uL (0.2-0.9) 11/28/22 06:36 Eos # (Auto) 0.0 10^3/uL (0.0-0.8) 11/28/22 06:36 Baso # (Auto) 0.0 10^3/uL (0.0-0.1) 11/28/22 06:36 Nucleated RBC % (auto) 0 % 11/28/22 06:36 Nucleated RBCs # 0.0 /100WBC 11/28/22 06:36 Specimen Type Arterial 11/28/22 06:10 Sample Site Brachial, left 11/28/22 06:10 ABG pH 7.43 (7.35-7.45) 11/28/22 06:10 ABG pCO2 46.2 mmHg (35-45) H 11/28/22 06:10 ABG pO2 61.2 mmHg (80.0-100.0) L 11/28/22 06:10 ABG HCO3 30.3 mmol/L (22-26) H 11/28/22 06:10 ABG O2 Saturation 92.6 11/28/22 06:10 ABG Base Excess 5.3 mmol/L (-2.0-2.0) H 11/28/22 06:10 David Test N/a 11/28/22 06:10 A-a O2 Gradient 26.2 mmHg (5-10) H 11/28/22 06:10 Hematocrit 24.2 % (42-52) L 11/28/22 06:10 Hgb O2 Saturation 90.0 % (95-100) L 11/28/22 06:10 Carboxyhemoglobin 2.0 %THgb (0.4-20.1) 11/28/22 06:10 Methemoglobin 0.8 % (0.4-1.5) 11/28/22 06:10 Total Hemoglobin 7.9 g/dL (14-18) L 11/28/22 06:10 Sodium 144.0 mmol/L (131-143) H 11/28/22 06:10 Potassium 3.6 mmol/L (3.5-5.0) 11/28/22 06:10 Glucose 106.0 mg/dL (70-115) 11/28/22 06:10 Ionized Calcium 1.2 mmol/L (1.1-1.4) 11/28/22 06:10 O2 Delivery Device Nc 11/28/22 06:10 O2 Liters/Min 6.0 % 11/28/22 06:10 FiO2 45.0 % 11/28/22 06:10 Varnish Thinner ID Alewe 11/28/22 06:10 Sodium 143 mmol/L (136-145) 11/28/22 06:36 Potassium 3.7 mmol/L (3.5-5.1) 11/28/22 06:36 Chloride 104 mmol/L (98-107) 11/28/22 06:36 Carbon Dioxide 29 mmol/L (22-29) 11/28/22 06:36 Anion Gap 13.7 (5-19) 11/28/22 06:36 BUN 27 mg/dL (8-23) H 11/28/22 06:36 Creatinine 0.9 mg/dL (0.7-1.2) 11/28/22 06:36 GFR Calculation 83.4 mL/min (90-130) L 11/28/22 06:36 Glucose 101 mg/dL (65-115) 11/28/22 06:36 Calculated Osmolality 301 mOsm/kg (285-295) H 11/28/22 06:36 Lactic Acid 1.7 mmol/L (0.5-2.2) 11/28/22 08:08 Calcium 7.8 mg/dL (8.5-10.5) L 11/28/22 06:36 Magnesium 1.7 mg/dL (1.7-2.3) 11/28/22 06:36 Iron 15 ug/dL (59-158) L 11/28/22 06:36 TIBC 146 mcg/dl 11/28/22 06:36 % Saturation 10.2 % (20-50) L 11/28/22 06:36 Unsat Iron Binding 131 ug/dL (112-347) 11/28/22 06:36 Ferritin 491 ng/mL (30-400) H 11/28/22 06:36 Total Bilirubin 0.3 mg/dL (0.15-1.2) 11/28/22 06:36 AST 23 U/L (0-40) 11/28/22 06:36 ALT 20 U/L (0-41) 11/28/22 06:36 Alkaline Phosphatase 69 U/L (40-130) 11/28/22 06:36 NT-Pro-B Natriuret Pep 64447 pg/mL (0-125) H 11/28/22 06:36 Total Protein 5.8 g/dL (6.6-8.7) L 11/28/22 06:36 Albumin 2.4 g/dL (3.5-5.2) L 11/28/22 06:36 Globulin 3.4 g/dL (1.3-4.6) 11/28/22 06:36 Vitamin B12 768 pg/mL (232-1245) 11/28/22 06:36 Folate 7.4 ng/mL (4.5-32.2) 11/28/22 06:36 Procalcitonin 0.10 ng/mL (0-0.5) 11/28/22 06:36 TSH 24.14 uIU/mL (0.27-4.20) H 11/28/22 06:36 Discharge Plan Discharge Patient Disposition: Admitted As Inpatient Admit Provider: Stiven Polanco Clinical Impression: Acute pulmonary embolism, COPD (chronic obstructive pulmonary disease), Anemia, Acute respiratory failure with hypoxia, Acute exacerbation of CHF (congestive heart failure) Condition: Stable Coding Level of Care Code ED 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
[2022-11-28 06:21] LABS: ABG PCO2 46.2 mmHg (35-45); ABG PH Result 7.43 (7.35-7.45); Alveolar-Arterial Oxygen Gradi 26.2 mmHg (5-10); Arterial Blood Gas Hematocrit 24.2 % (42-52); Base Excess ABG 5.3 mmol/L (-2.0-2.0); Blood Gas Sample Site Brachial, left; Blood Gas Sample Type Arterial; HCO3 ABG 30.3 mmol/L (22-26); Ionized Calcium Level - ABG 1.2 mmol/L (1.1-1.4); Methemoglobin 0.8 % (0.4-1.5); Oxygen Device NC; Oxygen Saturation ABG 92.6; PO2 ABG 61.2 mmHg (80.0-100.0); Potassium Level - ABG 3.6 mmol/L (3.5-5.0); Total Hemoglobin 7.9 g/dL (14-18)
[2022-11-28 06:41] LABS: Basophils % 0.2 %; Hematocrit 26.3 % (42.0-52.0); Lymphocytes # 0.9 10^3/uL (0.8-4.8); Lymphocytes % 10.9 %; Mean Corpuscular HGB Conc 30.4 g/dL (30.0-36.0); Mean Corpuscular Hemoglobin 31.5 pg (28.0-34.0); Mean Corpuscular Volume 103.5 fl (80-94); Mean Platelet Volume 9.3 fL (7.4-10.4); Monocytes # 0.3 10^3/uL (0.2-0.9); Monocytes % 4.2 %; Neutrophils # 6.89 10^3/uL (1.8-7.7); Neutrophils % 84.6 %; Nucleated Red Blood Cells % 0 %; Platelet Count 242 10^3/cmm (130-400); Red Blood Count 2.54 10^6/uL (4.1-5.3); Red Cell Distribution Width 17.5 % (12.1-15.1); White Blood Count 8.2 10^3/uL (4.0-10.0)
[2022-11-28 07:08] LABS: Alanine Aminotransferase 20 U/L (0-41); Albumin Level 2.4 g/dL (3.5-5.2); Alkaline Phosphatase 69 U/L (40-130); Anion Gap 13.7 (5-19); Aspartate Amino Transferase 23 U/L (0-40); Blood Urea Nitrogen 27 mg/dL (8-23); Calcium 7.8 mg/dL (8.5-10.5); Carbon Dioxide 29 mmol/L (22-29); Chloride 104 mmol/L (98-107); Globulin 3.4 g/dL (1.3-4.6); Glomerular Filtration Rate 83.4 mL/min (90-130); Glucose 101 mg/dL (65-115); Osmolality Calculated 301 mOsm/kg (285-295); Potassium 3.7 mmol/L (3.5-5.1); Sodium 143 mmol/L (136-145); Total Bilirubin 0.3 mg/dL (0.15-1.2); Total Protein 5.8 g/dL (6.6-8.7)
--- NOTE | 2022-11-28 07:25 | CT_ITS ---
WS: [id number] CTA OF THE CHEST WITH PULMONARY EMBOLISM PROTOCOL TECHNIQUE: High-resolution contrast enhanced CTA of the chest with coronal and sagittal reformatted i mages with pulmonary embolism protocol. MIP images are also reviewed. CLINICAL INFORMATION: hypoxia COMPARISON: CT chest September 16, 2022 DLP: 323.[address] scans at [facility] use at least one of these dose optimization techniques: automated e xposure control; mA and/or kV adjustment per patient size (includes targeted exams where dose is matc hed to clinical indication); or iterative reconstruction. FINDINGS: Moderate to large RIGHT and small LEFT pleural effusions. Enhancement of the LEFT pleura can be seen with empyema as previously described. RIGHT pleural effusion has increased from previous. LEFT pleural effusion has decreased. Bibasilar at electasis. Proximal main pulmonary arteries are normal. Filling defects in the RIGHT middle lobe pulmonary artery and with tiny filling defects RIGHT lower l obe pulmonary arteries compatible with pulmonary embolus. Partially visualized abdominal ascites. Prior LEFT rib fractures with plate and screw fixation CT/CT angio chest PE protcl [id number] IMPRESSION: 1. Moderate RIGHT and small LEFT pleural effusions. Enhancing LEFT pleural eff usion can be seen with empyema unchanged. RIGHT pleural effusion increased from previous. 2. Small filling defects in the RIGHT middle lobe and RIGHT lower lobe pulmona ry arteries compatible with acute pulmonary embolus. 3. No other changes compared to previous Notified Ash Hwang DO at 11/28/2022 9:47 AM.
--- NOTE | 2022-11-28 07:25 | USCV_ITS ---
Samuel Dale Age: 72 Gender: M : 1950 Exam Date: 11/28/2022 08:18 Ordering Phys: Ash Hwang DO Technologist: Karissa Castro Exam Location: [facility] Indication: bilat edema HISTORY: Lower extremity swelling. PROCEDURES: The venous duplex Doppler examination of both lower extremities was performed in the standard fashion. The following venous structures were evaluated: common femoral vein, profunda vein, proximal portion of the greater saphenous vein, superficial femoral vein, and the popliteal vein. In addition, the posterior tibial and peroneal trunk were evaluated. FINDINGS: Normal 2-D Doppler and augmentation and compressibility throughout the lower extremity venous structures. Additional imaging through the proximal calf veins also reveals no thrombus. Limited evaluation of the greater saphenous vein is patent with no thrombus. CONCLUSIONS No evidence of bilateral lower extremity DVT. Dr. Shirley Avelar DO (Electronically Signed) Final Date: 28 November 2022 10:54 S
[2022-11-28] MEDS: FUROsemide 10 mg/mL SDV 4mL 40 MG IVP ×2 (07:52→22:16)
--- NOTE | 2022-11-28 07:53 | ECG_ITS ---
[facility] Test Date: 2022-11-28 Pat Name: Samuel Dale Department: Room: Gender: Male Nnps: : 1950 Requested By: Ash Kirby Order Number: [id number] Cindy MD: Hemant Morris M.D. Measurements Intervals Novi Rate: 61 P: 67 MI: 122 QRS: 79 QRSD: 127 T: 30 QT: 481 QTc: 486 Interpretive Statements SINUS RHYTHM WITH OCCASIONAL VENTRICULAR PREMATURE COMPLEXES POSSIBLE RIGHT VENTRICULAR CONDUCTION DELAY [RSR (QR) IN V1/V2] ST DEVIATION AND MODERATE T-WAVE ABNORMALITY, CONSIDER ANTERIOR ISCHEMIA [-0.1+ mV T-WAVE IN V3/V4] Compared to ECG 09/11/2022 20:34:57 Ventricular premature complex(es) now present Atrial abnormality no longer present T-wave abnormality still present Possible ischemia still present Electronically Signed On 11-28-2022 10:50:46 INSIDE SALES CONSULTANT by Hemant Morris M.D. [id number]
[2022-11-28] MEDS: piperacillin-tazobactam 3.375 GM in sodium chloride 0.9% (plus) 50 ML IV (08:10)
[2022-11-28 08:34] LABS: Lactic Sepsis W/Reflex 1.7 mmol/L (0.5-2.2)
[2022-11-28] MEDS: vancomycin 1,000 MG in sodium chloride 0.9% 250 ML 250 MG IV (08:48)
[2022-11-28] MEDS: iohexol 350 mg/mL 500 mL Btl (per mL) IV (09:26)
--- NOTE | 2022-11-28 10:05 | PM.HP ---
Providers/Chief Complaint Admitting Physician: Brad Polanco MD, hospitalist Primary Care Provider: Scarlet Smith DO Chief Complaint: SOB History of Present Illness Samuel Dale is a 72 year old male who presents to the emergency department from [facility] with complaints of shortness of breath over the last week. No chest discomfort. No fever. Occasional cough. Typically on 4 L of oxygen but requiring more. No nausea and vomiting. Reports his last hospital stay was [place], which she was transferred there in August 2022 and stayed until sometime in September. reports he had some chest tubes there, and possible a ureter stent. Records have been ordered. No history of blood in stool, or black or tarry stool. Patient reports he quit tobacco 3 to 4 months ago. He acknowledges that his nutrition is poor. In the emergency department he has received vancomycin, Zosyn, and IV Lasix. He had recently finished 48 days of IV Ancef from previous hospitalization. Review of Systems General: Reports: 10 or more systems reviewed and unremarkable except in HPI and below Const: Denies: fever(s) or chills Eyes: Denies: change in vision ENMT: Denies: throat pain Card: Reports: swelling of feet/ankles and dyspnea on exertion; Denies: chest pain Resp: Reports: dyspnea; Denies: productive cough GI: Denies: abdominal pain, nausea, vomiting, hematochezia or melena Medications/Allergies Home Medications Medication Instructions Recorded Confirmed Last Taken Type albuterol sulfate 90 mcg/actuation 2 puff inhalation Q4H PRN 05/18/22 11/28/22 05/18/22 History aerosol inhaler Shortness Of Breath mirtazapine 7.5 mg tablet 7.5 mg PO BEDTIME 09/11/22 11/28/22 Unknown History albuterol sulfate 2.5 mg/3 mL 2.5 mg inhalation Q4H PRN 11/28/22 11/28/22 Unknown History (0.083 %) solution for nebulization Shortness Of Breath Or Wheezing aspirin 81 mg tablet,delayed 81 mg PO DAILY 11/28/22 11/28/22 Unknown History release atorvastatin 80 mg tablet 80 mg PO QPM 11/28/22 11/28/22 Unknown History escitalopram oxalate 10 mg tablet 10 mg PO DAILY 11/28/22 11/28/22 Unknown History furosemide 20 mg tablet 20 mg PO DAILY 11/28/22 11/28/22 Unknown History losartan 50 mg tablet 50 mg PO DAILY 11/28/22 11/28/22 Unknown History metoprolol tartrate 25 mg tablet 6.25 mg PO BID 11/28/22 11/28/22 Unknown History multivitamin 1 tab PO DAILY 11/28/22 11/28/22 Unknown History polyethylene glycol 3350 17 4 g PO BID 11/28/22 11/28/22 Unknown History gram/dose oral powder (Miralax) sennosides 8.6 mg tablet (senna) 8.6 mg PO DAILY 11/28/22 11/28/22 Unknown History tamsulosin 0.4 mg capsule 0.4 mg PO QPM 11/28/22 11/28/22 Unknown History trazodone 100 mg tablet 100 mg PO QPM 11/28/22 11/28/22 Unknown History umeclidinium 62.5 mcg-vilanterol 1 inh inhalation DAILY 11/28/22 11/28/22 Unknown History 25 mcg/actuation powdr for inhalation Allergies Allergy/AdvReac Type Severity Reaction Status Date / Time No Known Allergies Allergy Verified 11/28/22 06:02 PFSH Acute PFSH: Medical History (Updated 11/28/22 @ 10:18 by Stiven Polanco MD) Abrasion of arm, left BPH (benign prostatic hyperplasia) COPD (chronic obstructive pulmonary disease) Coronary artery disease Depression with anxiety HTN (hypertension) Hyperlipidemia 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 Peripheral vascular disease Pleural fistula Protein calorie malnutrition Rib cage dysfunction Rib fracture Trauma Surgical History No pertinent past surgical history Traumatic rib fracture status post reconstructive plates and screws left for benign Family History (Updated 11/28/22 @ 10:12 by Stiven Polanco MD) Other Cancer Denies family history of CAD (coronary artery disease) Social History (Updated 11/28/22 @ 10:12 by Stiven Polanco MD) Smoking and tobacco status: former smoker Alcohol intake: never Household members: spouse Vitals/I&O/Wt Last Vital Signs Temp 98.1 F 11/28/22 05:51 Pulse 50 L 11/28/22 08:44 Resp 15 03/06/23 08:44 BP 181/80 11/28/22 07:44 Pulse Ox 5 L 11/28/22 08:44 O2 Del Method 11/28/22 08:44 O2 Flow Rate 5 11/28/22 07:44 11/27/22 11/28/22 11/28/22 22:59 06:59 14:59 Intake Total 50 / 50 Balance 50 / 50 Weight last 48 hrs Weight 64.864 kg Physical Exam Narrative: General exam is a white male, in no distress, currently on 5 L of oxygen with a saturation of 88 to 90% HEENT: Atraumatic and normocephalic. Pupils equally round. Oropharynx clear. Neck is supple and no lymphadenopathy thyromegaly Cardiovascular regular rate and rhythm with frequent premature beats and no murmur Lungs with markedly diminished breath sounds bilaterally Abdomen is soft with positive bowel sounds. No obvious organomegaly exam was deferred Extremities with 2+ edema bilaterally Skin no rash Neuro no focal deficits. Data 11/28/22 06:36 11/28/22 06:36 Other Labs: Chest x-ray demonstrates bilateral pleural effusions. Likely atelectasis on my read EKG demonstrates sinus rhythm, frequent PVCs, normal axis, right bundle branch block on my read CTA demonstrates moderate right and small left pleural effusions, left still enhances. Small filling defects right middle lobe and right lower lobe consistent with pulmonary embolism ABG demonstrated a pH 7.43, PCO2 46, PO2 of 61 on 6 L. Calcium 7.8 Anemia panel ordered LFTs normal BNP elevated at 28,500 Albumin 2.4 TSH ordered and procalcitonin ordered COVID PCR ordered Blood cultures were obtained Micro: Microbiology 11/28/22 08:06 Blood Culture - Preliminary Blood SPECIMEN COLLECTED 11/28/22 08:08 Blood Culture - Preliminary Blood SPECIMEN COLLECTED A&P Assessment and plan (1) Acute pulmonary embolism: Patient has evidence of acute pulmonary embolism on CTA. Discussed risks and benefits of anticoagulation with the patient in detail. He wishes to proceed. Lovenox 1 mg/kg subcutaneous every 12 hours Monitor for any bleeding Close follow-up of CBC with CBC in the morning Wean oxygen as tolerated Doubt pneumonia, but we will evaluate with procalcitonin (2) Acute respiratory failure: Patient with evidence of acute on chronic respiratory failure with hypercarbia and hypoxia Ween oxygen as tolerated (3) Acute diastolic (congestive) heart failure: Patient appears to have acute diastolic heart failure Low albumin may also be causing a significant amount of edema Lasix 40 mg IV initiated in the ER Continue 40 mg IV every 12 hours Note that his chest x-ray shows bilateral pleural effusions right greater than left Recent echocardiogram demonstrated preserved EF. Will not repeat at this time. (4) Anemia: Patient with significant anemia. He denies any obvious blood in stool. Anemia panel. Fecal Hemoccult Repeat CBC tomorrow (5) Protein calorie malnutrition: Patient has evidence of severe protein calorie malnutrition Encourage appropriate feeding Continue to monitor (6) Coronary artery disease: Continue aspirin 81 mg, beta-jose, statin. Patient asymptomatic currently. (7) COPD (chronic obstructive pulmonary disease): Budesonide twice daily DuoNeb every 6 hours scheduled No evidence of exacerbation currently. Plan Other medical problems as outlined in past medical history Full code currently Lovenox for DVT prophylaxis Attestations Medical Necessity Statement*: Will need greater than to midnight stay for evaluation and treatment of acute pulmonary embolism, acute diastolic heart failure Diagnoses Acute pulmonary embolism I26.99 Acute respiratory failure J96.00 Acute diastolic (congestive) heart failure I50.31 Anemia D64.9 Protein calorie malnutrition E46 Coronary artery disease I25.10 COPD (chronic obstructive pulmonary disease) J44.9 Time Spent (min) 40
[2022-11-28] MEDS: enoxaparin 60 mg/0.6 mL Syringe 65 MG SUBCUT (10:16)
[2022-11-28 10:23] LABS: Magnesium 1.7 mg/dL (1.7-2.3); Thyroid Stimulating Hormone 24.14 uIU/mL (0.27-4.20)
[2022-11-28 10:46] LABS: Ferritin 491 ng/mL (30-400); Iron 15 ug/dL (59-158); Percent Saturation 10.2 % (20-50); Total Iron Binding Capacity 146 mcg/dl; Unsaturated Iron Binding 131 ug/dL (112-347)
[2022-11-28 11:02] LABS: Vitamin B12 768 pg/mL (232-1245)
[2022-11-28 11:06] LABS: Folate Level 7.4 ng/mL (4.5-32.2)
[2022-11-28 12:24] LABS: Urine Appearance Clear (CLEAR); Urine Color Light yellow (Yellow); pH Urine 6.5 (5-7)
[2022-11-28 12:25] LABS: Bilirubin Urine Neg (Negative); Blood Urine 2+ (Negative); Glucose Urine UA Norm (Normal); Ketones Urine Negative (Negative); Leukocyte Esterase Urine 2+ (Negative); Nitrate Urine Negative (Negative); Protein Urine Neg (Negative); Specific Gravity, Urine 1.001 (1.005-1.030); Urobilinogen Urine Norm (Negative)
[2022-11-28 12:28] LABS: Add Urine Culture? Yes
[2022-11-28] MEDS: ipratropium-albuterol 3 mL Neb INHALATION ×2 (13:40→19:46)
[2022-11-28 14:06] LABS: Adenovirus Not Detected (NOT DETECT); Chlamydia Pneumoniae Not Detected (NOT DETECT); Coronavirus 229E,HKU1,NL63,OC4 Not Detected (NOT DETECT); Human Metapneumovirus Not Detected (NOT DETECT); Human Rhinovirus/Enterovirus Not Detected (NOT DETECT); Influenza A Not Detected (NOT DETECT); Influenza A H1 Not Detected (NOT DETECT); Influenza A H1-2009 Not Detected (NOT DETECT); Influenza A H3 Not Detected (NOT DETECT); Influenza B Not Detected (NOT DETECT); Mycoplasma Pneumoniae Not Detected (NOT DETECT); Parainfluenza Virus Type 1 Not Detected (NOT DETECT); Parainfluenza Virus Type 2 Not Detected (NOT DETECT); Parainfluenza Virus Type 3 Not Detected (NOT DETECT); Parainfluenza Virus Type 4 Not Detected (NOT DETECT); Respiratory Syncytial Virus A Not Detected (NOT DETECT); Respiratory Syncytial Virus B Not Detected (NOT DETECT); SARS-COV-2 Not Detected (NOT DETECT)
[2022-11-28] MEDS: levothyroxine 25 mcg Tablet PO (15:20)
[2022-11-28] MEDS: pantoprazole DR 40 mg Tablet PO (17:34)
[2022-11-28] MEDS: tamsulosin 0.4 mg Capsule PO (17:35)
[2022-11-28] MEDS: trazodone 100 mg Tablet PO (17:35)
[2022-11-28] MEDS: atorvastatin 40 mg Tablet 80 MG PO (17:35)
[2022-11-28] MEDS: polyethylene glycol 3350 Pkt 17 gm PO (17:36)
[2022-11-28] MEDS: budesonide 0.5 mg/2 mL Neb INHALATION (19:46)
[2022-11-28] MEDS: metoprolol tartrate 25 mg Tablet 6.25 MG PO (22:15)
[2022-11-28] MEDS: enoxaparin 80 mg/0.8 mL Syringe 70 MG SUBCUT (22:15)
[2022-11-28] MEDS: mirtazapine 15 mg Tablet 7.5 MG PO (22:16)
--- NOTE | 2022-11-28 22:42 | PC.NURSE ---
1900: Bedside shift report obtained from [place]. [facility].
[2022-11-28 23:26] LABS: Glucose Point of Care 368 mg/dL (70-110)
[2022-11-29] VITALS (105 sets, daily range): BP systolic 106–200; BP diastolic 53–116; PULSE 49–78; RESP 13–29; TEMP 36.4–37; O2SAT 6–100
[2022-11-29] MEDS: ipratropium-albuterol 3 mL Neb INHALATION ×4 (01:54→21:58)
[2022-11-29 06:17] LABS: Basophils % 0.2 %; Hematocrit 23.5 % (42.0-52.0); Hemoglobin 7.2 g/dL (11.7-16.6); Lymphocytes % 15.7 %; Mean Corpuscular HGB Conc 30.6 g/dL (30.0-36.0); Mean Corpuscular Hemoglobin 31.6 pg (28.0-34.0); Mean Corpuscular Volume 103.1 fl (80-94); Mean Platelet Volume 9.4 fL (7.4-10.4); Monocytes # 0.5 10^3/uL (0.2-0.9); Monocytes % 7.3 %; Neutrophils # 4.99 10^3/uL (1.8-7.7); Neutrophils % 76.2 %; Nucleated Red Blood Cells % 0 %; Platelet Count 222 10^3/cmm (130-400); Red Blood Count 2.28 10^6/uL (4.1-5.3); Red Cell Distribution Width 17.5 % (12.1-15.1); White Blood Count 6.6 10^3/uL (4.0-10.0)
[2022-11-29 06:42] LABS: Alanine Aminotransferase 15 U/L (0-41); Albumin Level 2.2 g/dL (3.5-5.2); Alkaline Phosphatase 62 U/L (40-130); Anion Gap 11.7 (5-19); Aspartate Amino Transferase 14 U/L (0-40); Blood Urea Nitrogen 34 mg/dL (8-23); Calcium 7.8 mg/dL (8.5-10.5); Carbon Dioxide 31 mmol/L (22-29); Chloride 102 mmol/L (98-107); Globulin 3.3 g/dL (1.3-4.6); Glomerular Filtration Rate 73.9 mL/min (90-130); Glucose 146 mg/dL (65-115); Magnesium 1.8 mg/dL (1.7-2.3); Osmolality Calculated 302 mOsm/kg (285-295); Potassium 3.7 mmol/L (3.5-5.1); Sodium 141 mmol/L (136-145); Total Bilirubin 0.2 mg/dL (0.15-1.2); Total Protein 5.5 g/dL (6.6-8.7)
[2022-11-29] MEDS: levothyroxine 25 mcg Tablet PO (06:43)
--- NOTE | 2022-11-29 07:54 | P.PN_ITS ---
Subjective Subjective: Feels like his breathing is a little bit better. No chest pain overnight. No bowel movement overnight. Denies any significant reflux or abdominal pain. Medications: Reviewed: Yes Vitals/I&O/Wt Last Vital Signs Temp 97.8 F 11/29/22 04:00 Pulse 62 11/29/22 05:23 Resp 15 11/29/22 04:00 BP 183/70 11/29/22 04:30 Pulse Ox 97 11/29/22 04:00 O2 Del Method 11/29/22 04:00 O2 Flow Rate 3 11/29/22 04:00 11/28/22 11/29/22 11/29/22 22:59 06:59 14:59 Intake Total 340 / 390 100 / 490 Output Total 750 / 750 300 / 1050 Balance -410 / -360 -200 / -560 Weight last 48 hrs Weight 64.864 kg Physical Exam Narrative: General exam is a white male, in no distress, now on 3 L of oxygen Neck is supple and no lymphadenopathy thyromegaly Cardiovascular regular rate and rhythm with frequent premature beats and no murmur Lungs with markedly diminished breath sounds bilaterally Abdomen is soft with positive bowel sounds. No obvious organomegaly exam was deferred Extremities with 2+ edema bilaterally Skin no rash Neuro no focal deficits. Data 11/29/22 05:52 11/29/22 05:52 Micro: Microbiology 11/28/22 08:06 Blood Culture - Preliminary Blood SPECIMEN COLLECTED 11/28/22 08:08 Blood Culture - Preliminary Blood SPECIMEN COLLECTED A&P Assessment and plan (1) Acute pulmonary embolism: Patient has evidence of acute pulmonary embolism on CTA. Discussed risks and benefits of anticoagulation with the patient in detail. He wishes to proceed. Continue Lovenox 1 mg/kg subcutaneous every 12 hours Monitor for any bleeding Hemoglobin is drifted down. Transfused today. CBC tomorrow Wean oxygen as tolerated Doubt pneumonia, procalcitonin also normal. (2) Acute respiratory failure: Patient with evidence of acute on chronic respiratory failure with hypercarbia and hypoxia Oxygen is weaning (3) Acute diastolic (congestive) heart failure: Patient appears to have acute diastolic heart failure Low albumin may also be causing a significant amount of edema. Urine is negative for protein Lasix 40 mg IV initiated in the ER Continue 40 mg IV every 12 hours He has evidence of anasarca as well. With his albumin of 2.2 we will give him some albumin during this hospital stay to promote reduction of third spacing and diuresis. Albumin will be initiated today. Note that his chest x-ray shows bilateral pleural effusions right greater than l eft Recent echocardiogram demonstrated preserved EF. Will not repeat at this time. Repeat BMP tomorrow (4) Anemia: Patient with significant anemia. He denies any obvious blood in stool. Anemia panel demonstrates some iron deficiency. Iron saturation at 10.2%. Iron transfusion today. Fecal Hemoccult pending Repeat CBC tomorrow (5) Protein calorie malnutrition: Patient has evidence of severe protein calorie malnutrition Encourage appropriate feeding Continue to monitor (6) Coronary artery disease: Continue aspirin 81 mg, beta-jose, statin. Patient asymptomatic currently. (7) COPD (chronic obstructive pulmonary disease): Budesonide twice daily DuoNeb every 6 hours scheduled No evidence of exacerbation currently. Plan Other medical problems as outlined in past medical history Full code currently Lovenox for DVT prophylaxis Attestations Medical Necessity Statement*: Needs continued hospitalization for further diuresis secondary to heart failure, and transfusion for significant anemia in this patient where anticoagulation has been started. Diagnoses Acute pulmonary embolism I26.99 Acute respiratory failure J96.00 Acute diastolic (congestive) heart failure I50.31 Anemia D64.9 Protein calorie malnutrition E46 Coronary artery disease I25.10 COPD (chronic obstructive pulmonary disease) J44.9 Time Spent (min) 29
[2022-11-29] MEDS: budesonide 0.5 mg/2 mL Neb INHALATION ×2 (08:31→21:58)
[2022-11-29] MEDS: iron sucrose 200 MG in sodium chloride 0.9% (100 ml) 100 ML 220 MG IV (08:54)
[2022-11-29] MEDS: sennosides 8.6 mg Tablet PO (08:59)
[2022-11-29] MEDS: pantoprazole DR 40 mg Tablet PO ×2 (08:59→17:55)
[2022-11-29] MEDS: escitalopram 10 mg Tablet PO (08:59)
[2022-11-29] MEDS: multivitamin therapeutic Tablet 1 TAB PO (08:59)
[2022-11-29] MEDS: aspirin 81 mg EC Tablet PO (09:01)
[2022-11-29] MEDS: losartan 50 mg Tablet PO (09:02)
[2022-11-29] MEDS: FUROsemide 10 mg/mL SDV 4mL 40 MG IVP ×2 (09:21→22:26)
[2022-11-29] MEDS: albumin 25 G/100 ML VIAL IV ×2 (09:53→22:28)
--- NOTE | 2022-11-29 10:14 | PC.CHAP ---
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 [] Patient/Family/Request visit [] Outpatient visit [] Follow-up visit [] Physician referral [] Code/Alert [x] Routine visit [] Staff referral [] Actively dying [] Patient sleeping [x] Family support [] [] Out of room [] Palliative care [] [] Receiving care in room [] Pre-surgical visit [] Trauma [] Long length of stay [] ICU visit [] Other: Relational/Emotional Strength [x] Patient feels connected with others/family/visitors/staff [] Distress [] Loneliness/isolation [] Abandonment Spirituality of Patient [x] Person of Randee [] Attends Druze of their [place] [x] Believes in Prayer [] Reads Bible or Anabaptist materials [] There are Spiritual issues to be addressed It Help Desk Technician Interventions [x] Prayer [x] Active listening [] Non-anxious presence [x] Spiritual/emotional support [] Crisis/trauma care [] Spiritual counseling [] Bereavement support [] Provided bereavement packet [] Provided Bible/devotional materials [] Provided toy/stuffed animal, coloring book to patient or family member [] Provided Communion [] Anointing/Wilder [] Salvation [x] Completed spiritual assessment [] Other: Impact on Illness or Injury [] Angry [] Fearful [] Anxious [] Often cries [] Exhaustion [] Unable to work [] Unable to attend congregation [] Unable to walk/stand [] Unable to read [] Unable to drive [] Unable to eat/drink [] Unable to sleep [] Unable to be with family [] Patient intubated [] Other: Summary Time spent with patient 10 min
[2022-11-29] MEDS: nicotine 21 mg Patch 1 PATCH TRANSDERMA (12:50)
[2022-11-29] MEDS: enoxaparin 80 mg/0.8 mL Syringe 70 MG SUBCUT (12:57)
[2022-11-29] MEDS: tamsulosin 0.4 mg Capsule PO (17:55)
[2022-11-29] MEDS: trazodone 100 mg Tablet PO (17:55)
[2022-11-29] MEDS: atorvastatin 40 mg Tablet 80 MG PO (17:55)
[2022-11-29] MEDS: metoprolol tartrate 25 mg Tablet 6.25 MG PO (17:55)
[2022-11-29] MEDS: acetaminophen 325 mg Tablet 650 MG PO (18:40)
[2022-11-29] MEDS: enoxaparin 100 mg/mL Syringe 70 MG SUBCUT (22:26)
[2022-11-29] MEDS: mirtazapine 15 mg Tablet 7.5 MG PO (22:28)
[2022-11-30] VITALS (62 sets, daily range): BP systolic 140–167; BP diastolic 82–112; PULSE 55–75; RESP 7–33; TEMP 36.6–36.8; O2SAT 63–100
[2022-11-30] MEDS: morphine 4 mg/mL SDV 1 mL 2 MG IVP ×3 (00:04→22:06)
[2022-11-30] MEDS: lidocaine 5% Patch 1 PATCH TOPICAL (00:04)
[2022-11-30] MEDS: ipratropium-albuterol 3 mL Neb INHALATION ×4 (02:54→22:58)
--- NOTE | 2022-11-30 04:00 | PC.NURSE ---
Patient only voiding small amounts. Patient bladder scanned after voiding 100ml, showed >888ml residual. Spoke with regarding urine retention and obtained order to insert escobar. Patient was inc urine prior to escobar insertion, after inserting 16french coude catheter 600ml urine drained. Patient reports feeling more comfortable.
[2022-11-30 04:43] LABS: Basophils % 0.3 %; Hematocrit 30.1 % (42.0-52.0); Hemoglobin 9.2 g/dL (11.7-16.6); Lymphocytes # 0.9 10^3/uL (0.8-4.8); Mean Corpuscular HGB Conc 30.6 g/dL (30.0-36.0); Mean Corpuscular Hemoglobin 30.7 pg (28.0-34.0); Mean Corpuscular Volume 100.3 fl (80-94); Mean Platelet Volume 9.4 fL (7.4-10.4); Monocytes # 0.4 10^3/uL (0.2-0.9); Monocytes % 5.2 %; Neutrophils # 5.38 10^3/uL (1.8-7.7); Neutrophils % 80.1 %; Nucleated Red Blood Cells % 0 %; Platelet Count 239 10^3/cmm (130-400); Red Cell Distribution Width 19.9 % (12.1-15.1); White Blood Count 6.7 10^3/uL (4.0-10.0)
[2022-11-30 05:02] LABS: Alanine Aminotransferase 28 U/L (0-41); Alkaline Phosphatase 63 U/L (40-130); Anion Gap 14.4 (5-19); Aspartate Amino Transferase 29 U/L (0-40); Blood Urea Nitrogen 33 mg/dL (8-23); Calcium 8.1 mg/dL (8.5-10.5); Carbon Dioxide 31 mmol/L (22-29); Chloride 102 mmol/L (98-107); Globulin 3.6 g/dL (1.3-4.6); Glomerular Filtration Rate 66.2 mL/min (90-130); Glucose 87 mg/dL (65-115); Osmolality Calculated 305 mOsm/kg (285-295); Potassium 3.4 mmol/L (3.5-5.1); Sodium 144 mmol/L (136-145); Total Bilirubin 0.7 mg/dL (0.15-1.2); Total Protein 6.6 g/dL (6.6-8.7)
[2022-11-30] MEDS: levothyroxine 25 mcg Tablet PO (05:47)
[2022-11-30] MEDS: budesonide 0.5 mg/2 mL Neb INHALATION ×2 (07:51→22:58)
[2022-11-30] MEDS: potassium chloride ER 20 mEq Tablet 40 MEQ PO ×2 (08:21→15:10)
[2022-11-30] MEDS: escitalopram 10 mg Tablet PO (08:22)
[2022-11-30] MEDS: aspirin 81 mg EC Tablet PO (08:22)
[2022-11-30] MEDS: sennosides 8.6 mg Tablet PO (08:22)
[2022-11-30] MEDS: pantoprazole DR 40 mg Tablet PO ×2 (08:22→17:44)
[2022-11-30] MEDS: multivitamin therapeutic Tablet 1 TAB PO (08:22)
[2022-11-30] MEDS: metoprolol tartrate 25 mg Tablet 6.25 MG PO ×2 (08:23→17:40)
[2022-11-30] MEDS: nicotine 21 mg Patch 1 PATCH TRANSDERMA (08:24)
[2022-11-30] MEDS: polyethylene glycol 3350 Pkt 17 gm PO ×2 (08:25→17:49)
[2022-11-30] MEDS: losartan 50 mg Tablet PO (08:28)
[2022-11-30] MEDS: albumin 25 G/100 ML VIAL IV (09:47)
[2022-11-30] MEDS: FUROsemide 10 mg/mL SDV 4mL 40 MG IVP ×2 (09:48→21:50)
[2022-11-30] MEDS: enoxaparin 100 mg/mL Syringe 70 MG SUBCUT ×2 (11:22→21:50)
--- NOTE | 2022-11-30 12:41 | P.PN_ITS ---
Subjective Subjective: Samuel is still having some intermittent shortness of breath. He denies any blood in his stool. He did have a bowel movement last night. No chest discomfort. Medications: Reviewed: Yes Vitals/I&O/Wt Last Vital Signs Temp 98 F 11/30/22 04:00 Pulse 62 11/30/22 07:55 Resp 18 11/30/22 07:55 BP 161/82 11/30/22 07:53 Pulse Ox 97 11/30/22 07:55 O2 Del Method 11/30/22 07:55 O2 Flow Rate 4 11/30/22 07:55 11/29/22 11/30/22 11/30/22 22:59 06:59 14:59 Intake Total 470 / 920 100 / 1020 340 / 340 Output Total 375 / 1025 1400 / 2425 Balance 95 / -105 -1300 / -1405 340 / 340 Physical Exam Narrative: General exam is a white male, in no distress, now on 5 L of oxygen Neck is supple and no lymphadenopathy thyromegaly Cardiovascular regular rate and rhythm with frequent premature beats and no murmur Lungs with markedly diminished breath sounds bilaterally Abdomen is soft with positive bowel sounds. No obvious organomegaly exam was deferred Extremities with 1+ edema bilaterally Skin no rash Neuro no focal deficits. Urinary Catheter Management: Coude: Cath Placed During This Visit: yes Reason for Continuing Indwelling Catheter: Acute Urinary Retention or Obstruction Urinary Catheter Date of Insertion: 11/30/22 Urinary Catheter Time of Insertion: 04:00 Data 11/30/22 04:24 11/30/22 04:24 Micro: Microbiology 11/30/22 00:25 Occult Blood (FIT) - Final Stool - Stool Aspirate 11/29/22 13:50 Occult Blood (FIT) - Final Stool Routine Collection 11/28/22 08:06 Blood Culture - Preliminary Blood 11/28/22 10:39 Urine Culture - Preliminary Urine,Clean Catch 11/28/22 08:08 Blood Culture - Preliminary Blood NEGATIVE TO DATE A&P Assessment and plan (1) Acute pulmonary embolism: Patient has evidence of acute pulmonary embolism on CTA. Discussed risks and benefits of anticoagulation with the patient in detail. He wishes to proceed. Continue Lovenox 1 mg/kg subcutaneous every 12 hours Hemoglobin drifted down and he received 1 unit of packed red blood cells on November 29 Stool is positive for blood, but not grossly so Wean oxygen as tolerated Doubt pneumonia, procalcitonin normal. Continue to monitor. Note that he was recently treated for an empyema on the left at [facility] and was on a prolonged course of cefazolin which she has completed (2) Acute respiratory failure: Patient with evidence of acute on chronic respiratory failure with hypercarbia and hypoxia Wean oxygen as tolerated (3) Acute diastolic (congestive) heart failure: Patient appears to have acute diastolic heart failure Low albumin may also be causing a significant amount of edema. Urine is negative for protein Continue 40 mg IV every 12 hours He has evidence of anasarca as well. With his albumin of 2.2 we will give him some albumin during this hospital stay to promote reduction of third spacing and diuresis. Continue albumin twice daily Note that his chest x-ray shows bilateral pleural effusions right greater than left Recent echocardiogram demonstrated preserved EF. Will not repeat at this time. He has diuresed 1300 cc over the last 24 hours Repeat BMP and magnesium tomorrow Fluid restriction of 1000 cc per 24 hours (4) Anemia: Patient with significant anemia. He denies any obvious blood in stool. Anemia panel demonstrates some iron deficiency. Iron saturation at 10.2%. Iron transfusion today. Fecal Hemoccult positive. I have discussed in detail with the patient. It may not be a good idea to perform a procedure on him as he has just been diagnosed with an acute pulmonary embolism. He has only had 1 bowel movement while in the hospital, and likelihood of significant heavy blood loss currently is extremely low. I discussed with him needing this done in the future at the end of this hospital stay, or perhaps most likely after discharge. Repeat CBC tomorrow Continue Protonix twice daily (5) Protein calorie malnutrition: Patient has evidence of severe protein calorie malnutrition Encourage appropriate feeding. Supplements Continue to monitor (6) Coronary artery disease: Continue aspirin 81 mg, beta-jose, statin. Patient asymptomatic currently. (7) COPD (chronic obstructive pulmonary disease): Budesonide twice daily DuoNeb every 6 hours scheduled No evidence of exacerbation currently. Plan Hypokalemia. Supplement potassium Other medical problems as outlined in past medical history Full code currently Lovenox for DVT prophylaxis Attestations Medical Necessity Statement*: Needs continued hospitalization for further diuresis secondary to his acute diastolic heart failure Diagnoses Acute pulmonary embolism I26.99 Acute respiratory failure J96.00 Acute diastolic (congestive) heart failure I50.31 Anemia D64.9 Protein calorie malnutrition E46 Coronary artery disease I25.10 COPD (chronic obstructive pulmonary disease) J44.9 Time Spent (min) 32
[2022-11-30] MEDS: iron sucrose 200 MG in sodium chloride 0.9% (100 ml) 100 ML 220 MG IV (15:10)
--- NOTE | 2022-11-30 17:14 | CTR_ITS ---
PROCEDURE INFORMATION: Exam: CT Abdomen And Pelvis Without Contrast Exam date and time: 11/30/2022 6:10 PM Age: 72 years old Clinical indication: Abdominal pain; Right; Prior surgery; Surgery type: RT uereteral stent; Patient HX: C/O RT flank pain. ; Additional info: Right flank pain TECHNIQUE: Imaging protocol: Computed tomography of the abdomen and pelvis without contrast. Radiation optimization: All CT scans at this facility use at least one of these dose optimization techniques: automated exposure control; mA and/or kV adjustment per patient size (includes targeted exams where dose is matched to clinical indication); or iterative reconstruction. REPORTING DATA: Count of CT and Cardiac NM exams in prior 12 months: This patient has received 6 known CTs and 0 known cardiac nuclear medicine studies in the 12 months prior to the current study. COMPARISON: CT chest abd pel w con* 05/18/2022 6:29 PM RADIATION DOSE METRICS: Total DLP (mGy-cm): 463.33 FINDINGS: Lungs: Emphysema. Atelectasis in both lung bases. Pleural spaces: Large right pleural effusion. Medium left pleural fluid collection with visceral and parietal pleural thickening. Liver: Multiple hepatic cysts, Hounsfield units less than 20. Gallbladder and bile ducts: Small amount of sludge and possible tiny stones in the gallbladder. The bile ducts are normal. Pancreas: Normal. No ductal dilation. Spleen: Small calcified granulomas in the spleen. Adrenal glands: Normal. No mass. Kidneys and ureters: Right ureteral stent with proximal pigtail in a central calyx of the right kidney and distal pigtail in the urinary bladder. Mild right hydronephrosis. Faint contrast excretion in both kidneys. 3 mm nonobstructing left renal calculus. Stomach and bowel: Moderate stool in the distal colon and rectum. The stomach and small bowel are unremarkable. No obstruction. Appendix: The appendix is visualized and is normal. Intraperitoneal space: Large amount of ascites. No free peritoneal air. Vasculature: Diffuse arterial calcifications. The abdominal aorta is upper normal measuring 2.9 cm. Lymph nodes: Unremarkable. No enlarged lymph nodes. Urinary bladder: Espinoza catheter in a decompressed urinary bladder. Reproductive: Unremarkable as visualized. Bones/joints: Mild degenerative changes of the lumbar spine with mild curvature. No acute fracture. Old left rib fractures with fixation hardware. Soft tissues: Severe diffuse body wall edema. CT/CT kidney stone [id number] IMPRESSION: 1. Right ureteral stent placement with mild right hydronephrosis. 2. Faint contrast excretion within both renal collecting system is most likely from the previous CTA chest. 3. Severe anasarca including pleural effusions, ascites, and body wall edema. 4. Left pleural fluid with associated pleural thickening. An empyema is not excluded.
[2022-11-30] MEDS: trazodone 100 mg Tablet PO (17:43)
[2022-11-30] MEDS: atorvastatin 40 mg Tablet 80 MG PO (17:44)
[2022-11-30] MEDS: tamsulosin 0.4 mg Capsule PO (17:45)
--- NOTE | 2022-11-30 19:50 | PC.NURSE ---
shift report pt had speech eval, still has occassional shortness of breath. pt reported of right flank pain, rated at 11/[address] notified. orders received for pain med and ct renal imaging. bedside report provided to night stocker rn.
[2022-11-30] MEDS: ondansetron 2 mg/ML SDV 2 mL 4 MG IVP (20:23)
[2022-11-30] MEDS: albumin 25 G/100 ML BAG 60 G IV (21:50)
[2022-11-30] MEDS: mirtazapine 15 mg Tablet 7.5 MG PO (21:50)
[2022-12-01] VITALS (16 sets, daily range): BP systolic 136–167; BP diastolic 82–122; PULSE 60–79; RESP 12–28; TEMP 36.5–36.8; O2SAT 90–100
[2022-12-01] MEDS: morphine 4 mg/mL SDV 1 mL 2 MG IVP ×2 (01:18→04:18)
[2022-12-01] MEDS: ipratropium-albuterol 3 mL Neb INHALATION ×4 (03:18→20:45)
[2022-12-01 05:06] LABS: Basophils % 0.1 %; Hematocrit 29.2 % (42.0-52.0); Hemoglobin 8.8 g/dL (11.7-16.6); Lymphocytes # 0.6 10^3/uL (0.8-4.8); Lymphocytes % 6.6 %; Mean Corpuscular HGB Conc 30.1 g/dL (30.0-36.0); Mean Corpuscular Hemoglobin 30.6 pg (28.0-34.0); Mean Corpuscular Volume 101.4 fl (80-94); Mean Platelet Volume 9.7 fL (7.4-10.4); Monocytes # 0.4 10^3/uL (0.2-0.9); Monocytes % 4.6 %; Neutrophils # 8.53 10^3/uL (1.8-7.7); Neutrophils % 88.4 %; Nucleated Red Blood Cells % 0 %; Platelet Count 192 10^3/cmm (130-400); Red Blood Count 2.88 10^6/uL (4.1-5.3); Red Cell Distribution Width 18.8 % (12.1-15.1); White Blood Count 9.7 10^3/uL (4.0-10.0)
[2022-12-01 05:35] LABS: Alanine Aminotransferase 16 U/L (0-41); Albumin Level 3.2 g/dL (3.5-5.2); Alkaline Phosphatase 61 U/L (40-130); Blood Urea Nitrogen 29 mg/dL (8-23); Calcium 8.4 mg/dL (8.5-10.5); Carbon Dioxide 31 mmol/L (22-29); Chloride 100 mmol/L (98-107); Globulin 3.4 g/dL (1.3-4.6); Glomerular Filtration Rate 83.4 mL/min (90-130); Glucose 102 mg/dL (65-115); Magnesium 1.9 mg/dL (1.7-2.3); Osmolality Calculated 302 mOsm/kg (285-295); Sodium 143 mmol/L (136-145); Total Bilirubin 0.8 mg/dL (0.15-1.2); Total Protein 6.6 g/dL (6.6-8.7)
[2022-12-01 05:42] LABS: Anion Gap 16.5 (5-19); Potassium 4.5 mmol/L (3.5-5.1)
[2022-12-01 05:43] LABS: Aspartate Amino Transferase 16 U/L (0-40)
[2022-12-01] MEDS: levothyroxine 25 mcg Tablet PO (06:26)
[2022-12-01] MEDS: acetaminophen 325 mg Tablet 650 MG PO (06:28)
[2022-12-01] MEDS: budesonide 0.5 mg/2 mL Neb INHALATION ×2 (08:17→20:45)
--- NOTE | 2022-12-01 08:34 | PM.PN ---
Subjective Subjective: Samuel reports he still feels poorly but he may be less short of breath than yesterday. Right flank hurts some, and he would like something else for pain. A CT renal protocol was done yesterday secondary to his discomfort and history of right ureteral stent. Medications: Reviewed: Yes Vitals/I&O/Wt Last Vital Signs Temp 97.7 F 12/01/22 08:00 Pulse 70 12/01/22 08:00 Resp 18 12/01/22 08:00 BP 155/93 12/01/22 08:00 Pulse Ox 92 12/01/22 08:00 O2 Del Method 12/01/22 08:00 O2 Flow Rate 4 12/01/22 08:00 11/30/22 12/01/22 12/01/22 22:59 06:59 14:59 Intake Total 170 / 750 100 / 850 Output Total 400 / 1800 950 / 2750 Balance -230 / -1050 -850 / -1900 Physical Exam Narrative: General exam is a white male, in no distress, now on 4 L of oxygen. Over 2 L out yesterday. Neck is supple and no lymphadenopathy thyromegaly Cardiovascular regular rate and rhythm with frequent premature beats and no murmur Lungs with markedly diminished breath sounds bilaterally Abdomen is soft with positive bowel sounds. No obvious organomegaly exam was deferred. Espinoza noted Extremities with 1+ edema bilaterally Skin no rash Neuro no focal deficits. Urinary Catheter Management: Coude: Cath Placed During This Visit: yes Reason for Continuing Indwelling Catheter: Acute Urinary Retention or Obstruction Urinary Catheter Date of Insertion: 11/30/22 Urinary Catheter Time of Insertion: 04:00 Data 12/01/22 04:52 12/01/22 04:52 Other Labs: CT abdomen pelvis renal protocol yesterday demonstrates right ureteral stent placement with mild right hydro, bilateral pleural effusions and anasarca, left pleural fluid with pleural thickening Micro: Microbiology 11/28/22 08:06 Blood Culture - Final Blood Streptococcus species Corynebacterium species 11/28/22 10:39 Urine Culture - Final Urine,Clean Catch 11/30/22 00:25 Occult Blood (FIT) - Final Stool - Stool Aspirate A&P Assessment and plan (1) Acute pulmonary embolism: Patient has evidence of acute pulmonary embolism on CTA. Discussed risks and benefits of anticoagulation with the patient in detail. He wishes to proceed. Continue Lovenox 1 mg/kg subcutaneous every 12 hours Hemoglobin drifted down and he received 1 unit of packed red blood cells on November 29 Stool is positive for blood, but not grossly so. Only 1 bowel movement so far in the hospital Wean oxygen as tolerated Doubt pneumonia, procalcitonin normal. Continue to monitor. Note that he was recently treated for an empyema on the left at [place] and was on a prolonged course of cefazolin which he has completed (2) Acute respiratory failure: Patient with evidence of acute on chronic respiratory failure with hypercarbia and hypoxia Wean oxygen as tolerated (3) Acute diastolic (congestive) heart failure: Patient appears to have acute diastolic heart failure Low albumin may also be causing a significant amount of edema. Urine is negative for protein Continue Lasix 40 mg IV every 12 hours. He is diuresing well He has evidence of anasarca as well. With his albumin of 2.2 we will give him some albumin during this hospital stay to promote reduction of third spacing and diuresis. Continue albumin twice daily Note that his chest x-ray shows bilateral pleural effusions right greater than left. This is secondary to his low albumin and diastolic heart failure Recent echocardiogram demonstrated preserved EF. Will not repeat at this time. He continues to diurese and renal function is preserved Repeat BMP and magnesium tomorrow Fluid restriction of 1000 cc per 24 hours (4) Anemia: Patient with significant anemia. He denies any obvious blood in stool. Anemia panel demonstrates some iron deficiency. Iron saturation at 10.2%. Repeat iron transfusion today. This will be his third. This will likely be sufficient. Fecal Hemoccult positive. I have discussed in detail with the patient. It may not be a good idea to perform a procedure on him as he has just been diagnosed with an acute pulmonary embolism. He has only had 1 bowel movement while in the hospital, and likelihood of significant heavy blood loss currently is extremely low. I discussed with him needing this done in the future at the end of this hospital stay, or perhaps most likely after discharge. Repeat CBC tomorrow Continue Protonix twice daily (5) Protein calorie malnutrition: Patient has evidence of severe protein calorie malnutrition Encourage appropriate feeding. Supplements Continue to monitor (6) Coronary artery disease: Continue aspirin 81 mg, beta-jose, statin. Patient asymptomatic currently. (7) COPD (chronic obstructive pulmonary disease): Budesonide twice daily DuoNeb every 6 hours scheduled No evidence of exacerbation currently. Plan Hypokalemia. Resolved with supplementation Right flank pain. Also includes back. Likely musculoskeletal. CT renal protocol as above. Add Oxy IR for pain. Other medical problems as outlined in past medical history Full code currently Lovenox for DVT prophylaxis Arranging nursing facility care at discharge. Attestations Medical Necessity Statement*: Needs continued diuresis secondary to diastolic heart failure and anasarca. Coding Level of Care Code Acute Code for [facility] Diagnoses Acute pulmonary embolism I26.99 Acute respiratory failure J96.00 Acute diastolic (congestive) heart failure I50.31 Anemia D64.9 Protein calorie malnutrition E46 Coronary artery disease I25.10 COPD (chronic obstructive pulmonary disease) J44.9
--- NOTE | 2022-12-01 08:43 | PC.SOCIAL ---
IMM Update Pg. 2 of IMM updated and reviewed with patient, who verbalized understanding. Copy provided to patient, and copy placed in chart.
[2022-12-01] MEDS: multivitamin therapeutic Tablet 1 TAB PO (09:14)
[2022-12-01] MEDS: pantoprazole DR 40 mg Tablet PO ×2 (09:15→18:10)
[2022-12-01] MEDS: sennosides 8.6 mg Tablet PO (09:15)
[2022-12-01] MEDS: oxyCODONE 5 mg IR Tab/Cap PO (09:15)
[2022-12-01] MEDS: metoprolol tartrate 25 mg Tablet 6.25 MG PO ×2 (09:15→18:10)
[2022-12-01] MEDS: aspirin 81 mg EC Tablet PO (09:15)
[2022-12-01] MEDS: losartan 50 mg Tablet PO (09:15)
[2022-12-01] MEDS: polyethylene glycol 3350 Pkt 17 gm PO ×2 (09:16→18:11)
[2022-12-01] MEDS: nicotine 21 mg Patch 1 PATCH TRANSDERMA (09:16)
[2022-12-01] MEDS: albumin 25 G/100 ML BAG 60 G IV ×2 (09:29→20:41)
[2022-12-01] MEDS: escitalopram 10 mg Tablet PO (09:29)
[2022-12-01] MEDS: iron sucrose 200 MG in sodium chloride 0.9% (100 ml) 100 ML 220 MG IV (11:20)
[2022-12-01] MEDS: FUROsemide 10 mg/mL SDV 4mL 40 MG IVP ×2 (11:20→22:13)
[2022-12-01] MEDS: enoxaparin 100 mg/mL Syringe 70 MG SUBCUT (11:20)
--- NOTE | 2022-12-01 15:28 | PC.NURSE ---
Notified nurse patient is getting confused and hallucinating, vitals are in normal range at this time.
--- NOTE | 2022-12-01 16:23 | DCPLANNER ---
confusion, desat to 70s on 5 L nasal cannula Pt stated he is seeing a sink hole in his room. he is awake, alert, follows command and oriented to date and year. RT notified and aware. applied 10 L nonrebreather mask on. spo2 is up to 96%. fine coarse heard on lung bases. notified via phone. orders received for abg, bipap. RT at bedside notified.
[2022-12-01 17:06] LABS: Blood Gas Allen Test Pos; Blood Gas Sample Site Radial, right; Blood Gas Sample Type Arterial; Carboxyhemoglobin 1.9 %THgb (0.4-20.1); Ionized Calcium Level - ABG 1.2 mmol/L (1.1-1.4); Methemoglobin 0.6 % (0.4-1.5); Oxygen Device BIPAP
--- NOTE | 2022-12-01 17:31 | PC.NURSE ---
BIPAP still on FiO2 of 40%.
[2022-12-01 17:41] LABS: ABG PCO2 47.9 mmHg (35-45); ABG PH Result 7.46 (7.35-7.45); Alveolar-Arterial Oxygen Gradi 20.1 mmHg (5-10); Arterial Blood Gas Hematocrit 28.8 % (42-52); Base Excess ABG 9.5 mmol/L (-2.0-2.0); HCO3 ABG 34.4 mmol/L (22-26); HGB O2 Sat 93.8 % (95-100); Oxygen Saturation ABG 96.2; PO2 ABG 71.8 mmHg (80.0-100.0); Potassium Level - ABG 4.1 mmol/L (3.5-5.0); Total Hemoglobin 9.4 g/dL (14-18)
[2022-12-01] MEDS: trazodone 100 mg Tablet PO (18:10)
[2022-12-01] MEDS: atorvastatin 40 mg Tablet 80 MG PO (18:10)
[2022-12-01] MEDS: tamsulosin 0.4 mg Capsule PO (18:11)
[2022-12-01] MEDS: mirtazapine 15 mg Tablet 7.5 MG PO (20:37)
[2022-12-01] MEDS: hyDRALAzine 20 mg/mL INJ 1 mL 5 MG IVP (20:38)
[2022-12-01] MEDS: heparin 5,000 unit/mL INJ 1 mL IV (23:10)
[2022-12-01] MEDS: heparin drip 25,000 UNIT/500 ML PREMIX 18 UNIT IV (23:13)
[2022-12-02] VITALS (10 sets, daily range): BP systolic 0–185; BP diastolic 0–132; PULSE 0–75; RESP 0–28; TEMP -17.7–36.9; O2SAT 0–96
[2022-12-02] MEDS: hyDRALAzine 20 mg/mL INJ 1 mL 5 MG IVP (00:32)
[2022-12-02] MEDS: ipratropium-albuterol 3 mL Neb INHALATION ×3 (03:11→13:50)
[2022-12-02 05:12] LABS: Basophils % 0.1 %; Hematocrit 29.3 % (42.0-52.0); Lymphocytes # 0.5 10^3/uL (0.8-4.8); Mean Corpuscular HGB Conc 30.7 g/dL (30.0-36.0); Mean Corpuscular Hemoglobin 30.8 pg (28.0-34.0); Mean Corpuscular Volume 100.3 fl (80-94); Mean Platelet Volume 9.9 fL (7.4-10.4); Monocytes # 0.6 10^3/uL (0.2-0.9); Monocytes % 4.4 %; Neutrophils # 11.38 10^3/uL (1.8-7.7); Neutrophils % 90.9 %; Nucleated Red Blood Cells % 0 %; Platelet Count 227 10^3/cmm (130-400); Red Blood Count 2.92 10^6/uL (4.1-5.3); Red Cell Distribution Width 18.3 % (12.1-15.1); White Blood Count 12.5 10^3/uL (4.0-10.0)
[2022-12-02 05:35] LABS: Partial Thromboplastin Time 79.9 SECONDS (23.9-36.7)
[2022-12-02 05:44] LABS: Anion Gap 17.1 (5-19); Blood Urea Nitrogen 34 mg/dL (8-23); Calcium 8.8 mg/dL (8.5-10.5); Carbon Dioxide 31 mmol/L (22-29); Chloride 100 mmol/L (98-107); Glomerular Filtration Rate 73.9 mL/min (90-130); Glucose 129 mg/dL (65-115); Osmolality Calculated 307 mOsm/kg (285-295); Potassium 4.1 mmol/L (3.5-5.1); Sodium 144 mmol/L (136-145)
[2022-12-02] MEDS: levothyroxine 25 mcg Tablet PO (05:47)
--- NOTE | 2022-12-02 07:00 | XR_ITS ---
WS: [id number] Portable AP upright chest, 12/02/2022 Clinical Data: pleural effusion Comparison: Portable chest, 11/28/2022 Findings: The bilateral pleural effusions remain the same. The bilateral pulmonary opacities have not changed. The heart is at the upper limits of normal. The aortic arch shows calcification. The 6 plat elets in the left lateral ribs repairing rib fractures remain the same. Monitor leads are on the ches t wall. XR/XR chest 1V portable [id number] Impression: No change in bilateral pulmonary opacities and bilateral pleural effusions.
[2022-12-02] MEDS: budesonide 0.5 mg/2 mL Neb INHALATION (08:25)
--- NOTE | 2022-12-02 09:06 | US_ITS ---
WS: [id number] ULTRASOUND-GUIDED THORACENTESIS, RIGHT HISTORY: Pleural effusion, Hypoxia Procedure, risks, and complications were explained to the patient. With the patient in an upright pos ition, the skin over the RIGHT posterior thorax was cleansed with ChloraPrep and anesthetized with 1% buffered lidocaine. A 5 Malaysian Yueh needle is inserted into the pleural fluid without complication. Approximately 1200 cc of clear yellow pleural fluid is removed without difficulty. Specimen collected for analysis as requested. / thoracentesis [id number] IMPRESSION: 1. RIGHT thoracentesis yielding 1200 cc of fluid. 2. Chest radiograph to follow to evaluate for pneumothorax.
--- NOTE | 2022-12-02 09:33 | PM.PN ---
Subjective Subjective: Feels very short of breath. Says that he is having pain in his Right lower lung area. Required increased oxygen overnight to 10L, now at 8L. Denies chest pain at this time. Says that he has not felt like eating much. Vitals/I&O/Wt Last Vital Signs Temp 98.2 F 12/02/22 07:31 Pulse 67 12/02/22 08:00 Resp 18 12/02/22 08:00 BP 140/82 12/02/22 07:31 Pulse Ox 94 12/02/22 08:00 O2 Del Method 12/02/22 08:00 O2 Flow Rate 8 12/02/22 08:00 FiO2 40 12/01/22 20:45 12/01/22 12/02/22 12/02/22 22:59 06:59 14:59 Intake Total 1260 / 1710 357.6 / 2067.6 Output Total 2200 / 2200 600 / 2800 Balance -940 / -490 -242.4 / -732.4 Physical Exam Narrative: General: exam is a white male, in no distress, now on 8 L of oxygen. Neck: is supple and no lymphadenopathy thyromegaly Cardiovascular: regular rate and rhythm with frequent premature beats and no murmur Lungs: with markedly diminished breath sounds bilaterally, worse on the R side. Abdomen: is soft with positive bowel sounds. No obvious organomegaly. Mild anasarca noted. : exam was deferred. Espinoza noted with normal appearing urine. Extremities: 1+ edema bilaterally Skin: no rash Neuro: no focal motor or sensory deficits. Urinary Catheter Management: Coude: Cath Placed During This Visit: yes Reason for Continuing Indwelling Catheter: Acute Urinary Retention or Obstruction Urinary Catheter Date of Insertion: 11/30/22 Urinary Catheter Time of Insertion: 04:00 Data 12/02/22 04:48 12/02/22 04:48 A&P Assessment and plan (1) Acute pulmonary embolism: Patient has evidence of acute pulmonary embolism on CTA. Discussed risks and benefits of anticoagulation with the patient in detail. He wishes to proceed. Currently on Heparin Drip. Hemoglobin drifted down and he received 1 unit of packed red blood cells on November 29 Stool is positive for blood, but not grossly so. Only 1 bowel movement so far in the hospital Wean oxygen as tolerated Doubt pneumonia, procalcitonin normal. Continue to monitor. Note that he was recently treated for an empyema on the left at [facility] and was on a prolonged course of cefazolin which he has completed (2) Acute respiratory failure: Patient with evidence of acute on chronic respiratory failure with hypercarbia and hypoxia Wean oxygen as tolerated. (3) Acute diastolic (congestive) heart failure: Patient appears to have acute diastolic heart failure Low albumin may also be causing a significant amount of edema. Urine is negative for protein Continue Lasix 40 mg IV every 12 hours. He is diuresing well He has evidence of anasarca as well. With his albumin of 2.2 we will give him some albumin during this hospital stay to promote reduction of third spacing and diuresis. Continue albumin twice daily Note that his chest x-ray shows bilateral pleural effusions right greater than left. This is secondary to his low albumin and diastolic heart failure Recent echocardiogram demonstrated preserved EF. Will not repeat at this time. He continues to diurese and renal function is preserved Repeat BMP and magnesium tomorrow Fluid restriction of 1000 cc per 24 hours (4) Anemia: Patient with significant anemia. He denies any obvious blood in stool. Anemia panel demonstrates some iron deficiency. Iron saturation at 10.2%. Repeat iron transfusion today. This will be his third. This will likely be sufficient. Fecal Hemoccult positive. I have discussed in detail with the patient. It may not be a good idea to perform a procedure on him as he has just been diagnosed with an acute pulmonary embolism. He has only had 1 bowel movement while in the hospital, and likelihood of significant heavy blood loss currently is extremely low. I discussed with him needing this done in the future at the end of this hospital stay, or perhaps most likely after discharge. Repeat CBC tomorrow Continue Protonix twice daily (5) Protein calorie malnutrition: Patient has evidence of severe protein calorie malnutrition Encourage appropriate feeding. Supplements Continue to monitor (6) Coronary artery disease: Continue aspirin 81 mg, beta-jose, statin. Patient asymptomatic currently. (7) COPD (chronic obstructive pulmonary disease): Budesonide twice daily DuoNeb every 6 hours scheduled No evidence of exacerbation currently. Plan Reports more short of breath overnight. Oxygen requirement at 8L currently, up from 4L yesterday. Was up to 10L overnight. Discussed with Dr. Avelar today, will plan for thoracentesis later today if can decrease his PTT. Will hold heparin for now, repeat PTT around 1430 today, and make NPO. CXR this morning did show persistent pleural effusion, with slight improvement, however clinically appears with worsening respiratory status. Discussed with patient regarding risks and benefits of holding anticoagulation including worsening of his underlying PE, hypoxia, and . He did verbalize understanding and did wish to proceed. Code Status: Full code currently IVF: None DVT PPx: Heparin, currently holding for procedure. GI PPx: Protonix. ABx: None. Diet: NPO. Discharge plan: Case management arranging SNF. Attestations Medical Necessity Statement*: Needs continued diuresis secondary to diastolic heart failure and anasarca. Planning for thoracentesis due to worsening respiratory status. Diagnoses Acute pulmonary embolism I26.99 Acute respiratory failure J96.00 Acute diastolic (congestive) heart failure I50.31 Anemia D64.9 Protein calorie malnutrition E46 Coronary artery disease I25.10 COPD (chronic obstructive pulmonary disease) J44.9
[2022-12-02] MEDS: escitalopram 10 mg Tablet PO (09:36)
[2022-12-02] MEDS: aspirin 81 mg EC Tablet PO (09:36)
[2022-12-02] MEDS: albumin 25 G/100 ML BAG 60 G IV (09:36)
[2022-12-02] MEDS: losartan 50 mg Tablet PO (09:36)
[2022-12-02] MEDS: sennosides 8.6 mg Tablet PO (09:37)
[2022-12-02] MEDS: pantoprazole DR 40 mg Tablet PO ×2 (09:37→18:02)
[2022-12-02] MEDS: nicotine 21 mg Patch 1 PATCH TRANSDERMA (09:37)
[2022-12-02] MEDS: multivitamin therapeutic Tablet 1 TAB PO (09:37)
[2022-12-02] MEDS: metoprolol tartrate 25 mg Tablet 6.25 MG PO ×2 (09:37→18:02)
[2022-12-02] MEDS: FUROsemide 10 mg/mL SDV 4mL 40 MG IVP (09:38)
[2022-12-02 12:43] LABS: Partial Thromboplastin Time 39.5 SECONDS (23.9-36.7)
[2022-12-02 14:49] LABS: Partial Thromboplastin Time 37.9 SECONDS (23.9-36.7)
--- NOTE | 2022-12-02 16:09 | XR_ITS ---
WS: [id number] PORTABLE CHEST HISTORY: Post RIGHT thoracentesis. COMPARISON: 12/02/2022. Mild improvement in the RIGHT pleural effusion. There are persistent small bilateral pleural effusion s and mild pulmonary congestion. Diffuse interstitial thickening throughout both lungs is probably related to pulmonary edema. No pneu mothorax. Cardiac size: Normal. Mediastinum/Aorta: Mild atherosclerosis aorta. Plate and screw fixation of several contiguous left-sided rib fractures. XR/XR chest 1V portable [id number] IMPRESSION: 1. No pneumothorax status post RIGHT thoracentesis. 2. Persistent small bilateral pleural effusions. 3. Mild pulmonary congestion.
[2022-12-02] MEDS: atorvastatin 40 mg Tablet 80 MG PO (18:01)
[2022-12-02] MEDS: tamsulosin 0.4 mg Capsule PO (18:02)
[2022-12-02] MEDS: trazodone 100 mg Tablet PO (18:02)
[2022-12-02] MEDS: polyethylene glycol 3350 Pkt 17 gm PO (18:02)
[2022-12-02 18:05] LABS: Partial Thromboplastin Time 34.2 SECONDS (23.9-36.7)
--- NOTE | 2022-12-02 18:33 | W.ED.SOB ---
HPI - SOB/Dyspnea General: Chief Complaint: Shortness of Breath/Dyspnea Stated Complaint: SOB Time Seen by Provider: 11/28/22 05:55 Source: patient Mode of arrival: EMS History of Present Illness: HPI Narrative: . 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 Peripheral vascular disease Pleural fistula Protein calorie malnutrition Rib cage dysfunction Rib fracture Trauma Surgical History No pertinent past surgical history Traumatic rib fracture status post reconstructive plates and screws left for benign Family History (Updated 11/28/22 @ 10:12 by Stiven Polanco MD) Other Cancer Denies family history of CAD (coronary artery disease) Social History (Updated 11/28/22 @ 10:12 by Stiven Polanco MD) Smoking and tobacco status: former smoker Alcohol intake: never Household members: spouse Procedures Intubation Time out performed: No Laryngoscope: Nohemy ET Tube Size: 8 ET Tube Uncuffed: No Tube Secured Depth (cm): 25 Tube Secured Location: lips Tube Placement Confirmation: visualized tube passing through cords, equal breath sounds bilaterally, no breath sounds over epigastrium and confirmation by capnometry Patient Tolerated Procedure: well Course Vital Signs: Vital signs: Vital Signs Temperature 98.2 F 12/02/22 07:31 Pulse Rate 66 12/02/22 13:51 Respiratory Rate 18 12/02/22 13:51 Blood Pressure 140/82 12/02/22 09:36 Pulse Oximetry 95 12/02/22 13:51 Oxygen Delivery Me thod 12/02/22 13:51 Oxygen Flow Rate 8 12/02/22 13:51 Fraction of Inspir ed Oxygen 40 12/02/22 12:00 MDM - SOB/Dyspnea Medical Decision Making I was called for a CODE BLUE arrived patient was receiving CPR I did intubate him we did multiple rounds of CPR and epi and patient was in PEA and then went into asystole did ultrasound of his heart there was no cardiac cavity time of was called at 1827 Lab Data 12/02/22 04:48 12/02/22 04:48 Labs/Radiology: Radiology Impressions Chest CTA 11/28/22 07:25 IMPRESSION: 1. Moderate RIGHT and small LEFT pleural effusions. Enhancing LEFT pleural effusion can be seen with empyema unchanged. RIGHT pleural effusion increased from previous. 2. Small filling defects in the RIGHT middle lobe and RIGHT lower lobe pulmonary arteries compatible with acute pulmonary embolus. 3. No other changes compared to previous Notified Ash Hwang DO at 11/28/2022 9:47 AM. Abdomen/Pelvis CT 11/30/22 17:14 IMPRESSION: 1. Right ureteral stent placement with mild right hydronephrosis. 2. Faint contrast excretion within both renal collecting system is most likely from the previous CTA chest. 3. Severe anasarca including pleural effusions, ascites, and body wall edema. 4. Left pleural fluid with associated pleural thickening. An empyema is not excluded. Thoracentesis Ultrasound 12/02/22 09:06 IMPRESSION: 1. RIGHT thoracentesis yielding 1200 cc of fluid. 2. Chest radiograph to follow to evaluate for pneumothorax. Chest X-Ray 12/02/22 16:09 IMPRESSION: 1. No pneumothorax status post RIGHT thoracentesis. 2. Persistent small bilateral pleural effusions. 3. Mild pulmonary congestion. Laboratory Results WBC 8.2 10^3/uL (4.0-10.0) 11/28/22 06:36 RBC 2.54 10^6/uL (4.1-5.3) L 11/28/22 06:36 Hgb 8.0 g/dL (11.7-16.6) L 11/28/22 06:36 Hct 26.3 % (42.0-52.0) L 11/28/22 06:36 MCV 103.5 fl (80-94) H 11/28/22 06:36 MCH 31.5 pg (28.0-34.0) 11/28/22 06:36 MCHC 30.4 g/dL (30.0-36.0) 11/28/22 06:36 RDW 17.5 % (12.1-15.1) H 11/28/22 06:36 Plt Count 242 10^3/cmm (130-400) 11/28/22 06:36 MPV 9.3 fL (7.4-10.4) 11/28/22 06:36 Neut % (Auto) 84.6 % 11/28/22 06:36 Lymph % (Auto) 10.9 % 11/28/22 06:36 Lasalle % (Auto) 4.2 % 11/28/22 06:36 Eos % (Auto) 0.0 % 11/28/22 06:36 Baso % (Auto) 0.2 % 11/28/22 06:36 Neut # (Auto) 6.89 10^3/uL (1.8-7.7) 11/28/22 06:36 Lymph # (Auto) 0.9 10^3/uL (0.8-4.8) 11/28/22 06:36 Lasalle # (Auto) 0.3 10^3/uL (0.2-0.9) 11/28/22 06:36 Eos # (Auto) 0.0 10^3/uL (0.0-0.8) 11/28/22 06:36 Baso # (Auto) 0.0 10^3/uL (0.0-0.1) 11/28/22 06:36 Nucleated RBC % (auto) 0 % 11/28/22 06:36 Nucleated RBCs # 0.0 /100WBC 11/28/22 06:36 Specimen Type Arterial 11/28/22 06:10 Sample Site Brachial, left 11/28/22 06:10 ABG pH 7.43 (7.35-7.45) 11/28/22 06:10 ABG pCO2 46.2 mmHg (35-45) H 11/28/22 06:10 ABG pO2 61.2 mmHg (80.0-100.0) L 11/28/22 06:10 ABG HCO3 30.3 mmol/L (22-26) H 11/28/22 06:10 ABG O2 Saturation 92.6 11/28/22 06:10 ABG Base Excess 5.3 mmol/L (-2.0-2.0) H 11/28/22 06:10 David Test N/a 11/28/22 06:10 A-a O2 Gradient 26.2 mmHg (5-10) H 11/28/22 06:10 Hematocrit 24.2 % (42-52) L 11/28/22 06:10 Hgb O2 Saturation 90.0 % (95-100) L 11/28/22 06:10 Carboxyhemoglobin 2.0 %THgb (0.4-20.1) 11/28/22 06:10 Methemoglobin 0.8 % (0.4-1.5) 11/28/22 06:10 Total Hemoglobin 7.9 g/dL (14-18) L 11/28/22 06:10 Sodium 144.0 mmol/L (131-143) H 11/28/22 06:10 Potassium 3.6 mmol/L (3.5-5.0) 11/28/22 06:10 Glucose 106.0 mg/dL (70-115) 11/28/22 06:10 Ionized Calcium 1.2 mmol/L (1.1-1.4) 11/28/22 06:10 O2 Delivery Device Nc 11/28/22 06:10 O2 Liters/Min 6.0 % 11/28/22 06:10 FiO2 45.0 % 11/28/22 06:10 Eating Disorder Psychologist ID Alewe 11/28/22 06:10 Sodium 143 mmol/L (136-145) 11/28/22 06:36 Potassium 3.7 mmol/L (3.5-5.1) 11/28/22 06:36 Chloride 104 mmol/L (98-107) 11/28/22 06:36 Carbon Dioxide 29 mmol/L (22-29) 11/28/22 06:36 Anion Gap 13.7 (5-19) 11/28/22 06:36 BUN 27 mg/dL (8-23) H 11/28/22 06:36 Creatinine 0.9 mg/dL (0.7-1.2) 11/28/22 06:36 GFR Calculation 83.4 mL/min (90-130) L 11/28/22 06:36 Glucose 101 mg/dL (65-115) 11/28/22 06:36 Calculated Osmolality 301 mOsm/kg (285-295) H 11/28/22 06:36 Lactic Acid 1.7 mmol/L (0.5-2.2) 11/28/22 08:08 Calcium 7.8 mg/dL (8.5-10.5) L 11/28/22 06:36 Magnesium 1.7 mg/dL (1.7-2.3) 11/28/22 06:36 Iron 15 ug/dL (59-158) L 11/28/22 06:36 TIBC 146 mcg/dl 11/28/22 06:36 % Saturation 10.2 % (20-50) L 11/28/22 06:36 Unsat Iron Binding 131 ug/dL (112-347) 11/28/22 06:36 Ferritin 491 ng/mL (30-400) H 11/28/22 06:36 Total Bilirubin 0.3 mg/dL (0.15-1.2) 11/28/22 06:36 AST 23 U/L (0-40) 11/28/22 06:36 ALT 20 U/L (0-41) 11/28/22 06:36 Alkaline Phosphatase 69 U/L (40-130) 11/28/22 06:36 NT-Pro-B Natriuret Pep 78515 pg/mL (0-125) H 11/28/22 06:36 Total Protein 5.8 g/dL (6.6-8.7) L 11/28/22 06:36 Albumin 2.4 g/dL (3.5-5.2) L 11/28/22 06:36 Globulin 3.4 g/dL (1.3-4.6) 11/28/22 06:36 Vitamin B12 768 pg/mL (232-1245) 11/28/22 06:36 Folate 7.4 ng/mL (4.5-32.2) 11/28/22 06:36 Procalcitonin 0.10 ng/mL (0-0.5) 11/28/22 06:36 TSH 24.14 uIU/mL (0.27-4.20) H 11/28/22 06:36 Discharge Plan Discharge Patient Disposition: Admitted As Inpatient Admit Provider: Stiven Polanco Clinical Impression: Acute pulmonary embolism, COPD (chronic obstructive pulmonary disease), Anemia, Acute respiratory failure with hypoxia, Acute exacerbation of CHF (congestive heart failure) Condition: Stable Coding Level of Care Code 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
--- NOTE | 2022-12-02 18:51 | PM.MISC ---
Miscellaneous Note Note: I was approached by the nurse wall mirror department supervisor haris to speak with the family, I was seeing another patient on [facility] around 7 PM, Dr. Hutson was leading the Y[facility] BLUE team, rhythm was PEA, patient was intubated, 4 rounds of epi were given, ROSC could not be obtained, patient was pronounced by the ER physician. By the time I arrived, was at the bedside After reviewing the chart & getting details OF YAZAN MAHMOOD, I went in to speak with the family, I offered his some time before I initiated my conversation She is telling me that Mr. Dale has been declining for quite some time and since his [facility] visit he has not recovered well, she was also telling me about some complications during chest tube placement at [facility], I tried to explain that most likely etiology of sudden PEA is underlying PE, and this risk was communicated to the patient today by Dr. Woodson as well before thoracentesis, His thoracentesis was successful, no signs of hemorrhagic conversion after thoracentesis or pneumothorax However according to nursing staff his oxygen requirement never improved after thoracentesis, when nurse checked on him after thoracentesis he was asleep, heart rate around 50s All questions were answered to Mrs. Dale satisfaction. She did not ask any further questions. She is very receptive and very thankful for the care Mr. Dale received in the hospital Will inform Dr. Woodson and Dr. Polanco
--- NOTE | 2022-12-02 19:25 | NUR.SHIFT ---
Nurse went into give patient 1800 meds but patient appeared to be in heavy sleep. Checked heart rate and it was 50 and 02 was 97%. Nurse decided to pass other meds and try to come back after a few minutes and let patient rest. While nurse was in the med room, she heard rapid response room 111-1 . Patient had bradycardiaed down to 40 and then 30 and therefore a rapid response was called. Then a code blue was called and compressions started. Dr. Mahmood called it at 1828. Family notified. Dr. Márquez notified and responded to code as well. Patient had been declining all day, slowly requiring more oxygen.
--- NOTE | 2022-12-02 20:06 | PC.NURSE ---
Rapid response called @1812 Code Blue called @1812. CPR initiated @1812. Pulse check- @1814- Asystole. Resume CPR Epi @1815 Pulse Check @1816- Asystole. Resume CPR Epi @1818 Intubated @1817 8.0 ET 23@lip Pulse Check @1818-Asystole. Resume CPR Pulse Check @1820. Asystole. Resume CPR Epi @1821 Pulse Check @1822. PEA. Resume CPR Epi @1824 Pulse Check @1825. Asystole. Resume CPR Pulse Check @1827- Asystole TOD @1827
--- NOTE | 2022-12-02 20:14 | PC.NURSE ---
MTS notified of pt @1854. MTS declined donation @1947. Saving Site declines/released @2002
--- NOTE | 2022-12-21 11:49 | P.DS_ITS ---
Discharge Providers Date of Admission: 11/28/22 10:00 Date of Discharge: December 21, 2022 Attending Provider at Admission: Stiven Polanco MD Attending Provider at Discharge: Lorenzo Poe DO Primary Care Provider: Scarlet Smith DO Diagnoses at Discharge Discharge Diagnosis (1) Acute pulmonary embolism: Status: Acute (2) Acute respiratory failure: Status: Acute (3) Acute diastolic (congestive) heart failure: Status: Acute (4) Anemia: Status: Acute (5) Protein calorie malnutrition: Status: Acute (6) Coronary artery disease: Status: Acute (7) COPD (chronic obstructive pulmonary disease): Status: Acute Reason for Visit Reason for Visit: SOB Brief History: Samuel Dale is a 72 year old male who presents to the emergency department from [facility] with complaints of shortness of breath over the last week.? Typically on 4 L of oxygen but requiring more today. He does report his last hospital stay was at [facility] in August 2022 and stayed until sometime in September.? reports he had some chest tubes there, and possible a ureter stent.? He was not having fever or chills prior to this visit, but did endorse an occasional cough. In the emergency department he has received vancomycin, Zosyn, and IV Lasix. He had recently finished 48 days of IV Ancef from previous hospitalization. Hospital Course Hospital Course He was evalated in the ER and found to have PE with bilateral pleural effusions. He required significant increase in his oxygen requirement. He was initially started on anticoagulation and began diuresis to assist with his effusions. He did have some improvement in his oxygen requirement initially for the first few days but again began to have decrease in his saturations and requiring more oxygen to keep sats greater than 90%. CXR was ordered and again demonstrated significant Pleural effusion bilaterally with worsening on on Right side. His history did include a previous empyema of the Right side. With his worsening saturations and increased oxygen requirement, decision was made to attempt thoracentesis to decrease fluid burden of the Right lung. Procedure was successful and approximately 1200ml of fluid was extracted. Around 1829 of this date, the patient was found to be unresponsive in PEA. Code team has responded and was unable to obtain ROSC. Time of was 1826 and felt to be result of pulmonary embolism. Physical Exam Urinary Catheter Management: Coude: Cath Placed During This Visit: yes Reason for Continuing Indwelling Catheter: Acute Urinary Retention or Obstruction Urinary Catheter Date of Insertion: 11/30/22 Urinary Catheter Time of Insertion: 04:00 Discharge Data Studies Completed and Pending Completed Studies During Hospitalization Category Date Time Status CT angio chest PE protcl [id number] Stat Cat Scan 11/28/22 07:[address] kidney stone [id number] Routine Cat Scan 11/30/22 17:14 Completed XR chest 1V portable [id number] Routine Exams 12/02/22 07:00 Completed XR chest 1V portable [id number] Stat Exams 11/28/22 05:56 Completed XR chest 1V portable [id number] Stat Exams 12/02/22 16:09 Completed US thoracentesis [id number] Routine Ultrasound 12/02/22 09:06 Completed US venous duplex lower extremity bilat [CV venous Ultrasound 11/28/22 07:25 [place] [id number]] Stat Radiology Impressions Chest CTA 11/28/22 07:25 IMPRESSION: 1. Moderate RIGHT and small LEFT pleural effusions. Enhancing LEFT pleural effusion can be seen with empyema unchanged. RIGHT pleural effusion increased from previous. 2. Small filling defects in the RIGHT middle lobe and RIGHT lower lobe pulmonary arteries compatible with acute pulmonary embolus. 3. No other changes compared to previous Notified Ash Hwang DO at 11/28/2022 9:47 AM. Abdomen/Pelvis CT 11/30/22 17:14 IMPRESSION: 1. Right ureteral stent placement with mild right hydronephrosis. 2. Faint contrast excretion within both renal collecting system is most likely from the previous CTA chest. 3. Severe anasarca including pleural effusions, ascites, and body wall edema. 4. Left pleural fluid with associated pleural thickening. An empyema is not excluded. Thoracentesis Ultrasound 12/02/22 09:06 IMPRESSION: 1. RIGHT thoracentesis yielding 1200 cc of fluid. 2. Chest radiograph to follow to evaluate for pneumothorax. Chest X-Ray 12/02/22 16:09 IMPRESSION: 1. No pneumothorax status post RIGHT thoracentesis. 2. Persistent small bilateral pleural effusions. 3. Mild pulmonary congestion. Laboratory Results WBC 12.5 10^3/uL (4.0-10.0) H 12/02/22 04:48 RBC 2.92 10^6/uL (4.1-5.3) L 12/02/22 04:48 Hgb 9.0 g/dL (11.7-16.6) L 12/02/22 04:48 Hct 29.3 % (42.0-52.0) L 12/02/22 04:48 MCV 100.3 fl (80-94) H 12/02/22 04:48 MCH 30.8 pg (28.0-34.0) 12/02/22 04:48 MCHC 30.7 g/dL (30.0-36.0) 12/02/22 04:48 RDW 18.3 % (12.1-15.1) H 12/02/22 04:48 Plt Count 227 10^3/cmm (130-400) 12/02/22 04:48 MPV 9.9 fL (7.4-10.4) 12/02/22 04:48 Neut % (Auto) 90.9 % 12/02/22 04:48 Lymph % (Auto) 4.0 % 12/02/22 04:48 [place] % (Auto) 4.4 % 12/02/22 04:48 Eos % (Auto) 0.0 % 12/02/22 04:48 Baso % (Auto) 0.1 % 12/02/22 04:48 Neut # (Auto) 11.38 10^3/uL (1.8-7.7) H 12/02/22 04:48 Lymph # (Auto) 0.5 10^3/uL (0.8-4.8) L 12/02/22 04:48 [place] # (Auto) 0.6 10^3/uL (0.2-0.9) 12/02/22 04:48 Eos # (Auto) 0.0 10^3/uL (0.0-0.8) 12/02/22 04:48 Baso # (Auto) 0.0 10^3/uL (0.0-0.1) 12/02/22 04:48 Nucleated RBC % (auto) 0 % 12/02/22 04:48 Nucleated RBCs # 0.0 /100WBC 12/02/22 04:48 PT 14.60 SECONDS (12.1-14.9) 12/02/22 14:30 INR 1.10 (0.8-1.2) 12/02/22 14:30 APTT 34.2 SECONDS (23.9-36.7) 12/02/22 17:20 Specimen Type Arterial 12/01/22 16:55 Sample Site Radial, right 12/01/22 16:55 ABG pH 7.46 (7.35-7.45) H 12/01/22 16:55 ABG pCO2 47.9 mmHg (35-45) H 12/01/22 16:55 ABG pO2 71.8 mmHg (80.0-100.0) L 12/01/22 16:55 ABG HCO3 34.4 mmol/L (22-26) H 12/01/22 16:55 ABG O2 Saturation 96.2 12/01/22 16:55 ABG Base Excess 9.5 mmol/L (-2.0-2.0) H 12/01/22 16:55 David Test Pos 12/01/22 16:55 A-a O2 Gradient 20.1 mmHg (5-10) H 12/01/22 16:55 Hematocrit 28.8 % (42-52) L 12/01/22 16:55 Hgb O2 Saturation 93.8 % (95-100) L 12/01/22 16:55 Carboxyhemoglobin 1.9 %THgb (0.4-20.1) 12/01/22 16:55 Methemoglobin 0.6 % (0.4-1.5) 12/01/22 16:55 Total Hemoglobin 9.4 g/dL (14-18) L 12/01/22 16:55 Sodium 146.0 mmol/L (131-143) H 12/01/22 16:55 Potassium 4.1 mmol/L (3.5-5.0) 12/01/22 16:55 Glucose 135.0 mg/dL (70-115) H 12/01/22 16:55 Ionized Calcium 1.2 mmol/L (1.1-1.4) 12/01/22 16:55 O2 Delivery Device Bipap 12/01/22 16:55 O2 Liters/Min 6.0 % 11/28/22 06:10 FiO2 40.0 % 12/01/22 16:55 PEEP 6.0 cmH20 12/01/22 16:55 CPAP 12.0 cmH20 12/01/22 16:55 Vision Mixer ID Moris 12/01/22 16:55 Sodium 144 mmol/L (136-145) 12/02/22 04:48 Potassium 4.1 mmol/L (3.5-5.1) 12/02/22 04:48 Chloride 100 mmol/L (98-107) 12/02/22 04:48 Carbon Dioxide 31 mmol/L (22-29) H 12/02/22 04:48 Anion Gap 17.1 (5-19) 12/02/22 04:48 BUN 34 mg/dL (8-23) H 12/02/22 04:48 Creatinine 1.0 mg/dL (0.7-1.2) 12/02/22 04:48 GFR Calculation 73.9 mL/min (90-130) L 12/02/22 04:48 Glucose 129 mg/dL (65-115) H 12/02/22 04:48 POC Glucose 368 mg/dL (70-110) H 11/28/22 23:21 Calculated Osmolality 307 mOsm/kg (285-295) H 12/02/22 04:48 Lactic Acid 1.7 mmol/L (0.5-2.2) 11/28/22 08:08 Calcium 8.8 mg/dL (8.5-10.5) 12/02/22 04:48 Magnesium 2.0 mg/dL (1.7-2.3) 12/02/22 04:48 Iron 15 ug/dL (59-158) L 11/28/22 06:36 TIBC 146 mcg/dl 11/28/22 06:36 % Saturation 10.2 % (20-50) L 11/28/22 06:36 Unsat Iron Binding 131 ug/dL (112-347) 11/28/22 06:36 Ferritin 491 ng/mL (30-400) H 11/28/22 06:36 Total Bilirubin 0.8 mg/dL (0.15-1.2) 12/01/22 04:52 AST 16 U/L (0-40) 12/01/22 04:52 ALT 16 U/L (0-41) 12/01/22 04:52 Alkaline Phosphatase 61 U/L (40-130) 12/01/22 04:52 NT-Pro-B Natriuret Pep 49839 pg/mL (0-125) H 11/28/22 06:36 Total Protein 6.6 g/dL (6.6-8.7) 12/01/22 04:52 Albumin 3.2 g/dL (3.5-5.2) L 12/01/22 04:52 Globulin 3.4 g/dL (1.3-4.6) 12/01/22 04:52 Vitamin B12 768 pg/mL (232-1245) 11/28/22 06:36 Folate 7.4 ng/mL (4.5-32.2) 11/28/22 06:36 Procalcitonin 0.10 ng/mL (0-0.5) 11/28/22 06:36 TSH 24.14 uIU/mL (0.27-4.20) H 11/28/22 06:36 Urine Color Light yellow (Yellow) 11/28/22 10:39 Urine Appearance Clear (CLEAR) 11/28/22 10:39 Urine pH 6.5 (5-7) 11/28/22 10:39 Ur Specific [place] 1.001 (1.005-1.030) L 11/28/22 10:39 Urine Protein Neg (Negative) 11/28/22 10:39 Urine Glucose (UA) Norm (Normal) 11/28/22 10:39 Urine Ketones Negative (Negative) 11/28/22 10:39 Urine Blood 2+ (Negative) H 11/28/22 10:39 Urine Nitrate Negative (Negative) 11/28/22 10:39 Urine Bilirubin Neg (Negative) 11/28/22 10:39 Urine Urobilinogen Norm mg/dL (Negative) 11/28/22 10:39 Ur Leukocyte Esterase 2+ (Negative) H 11/28/22 10:39 Urine RBC 5-10 /hpf (0-2) H 11/28/22 10:39 Urine WBC 5-10 /hpf (0-5) H 11/28/22 10:39 Ur Squamous Epith Cells None /hpf (0-5) 11/28/22 10:39 Amorphous Sediment Not Reportable 11/28/22 10:39 Urine Bacteria None /hpf (NONE) 11/28/22 10:39 Urine Yeast 1+ /hpf H 11/28/22 10:39 Coronavirus 229E (PCR) Not detected (NOT DETECT) 11/28/22 10:21 SARS-CoV-2 (PCR) Not detected (NOT DETECT) 11/28/22 10:21 Blood Type A Positive 11/29/22 12:20 Rho(D) Type Positive 11/29/22 12:20 Antibody Screen Negative 11/29/22 12:20 Crossmatch See Detail 11/29/22 12:20 Vitals Last Vital Signs Temp 0 F L 12/02/22 19:29 Pulse 0 L 12/02/22 19:29 Resp 0 L 12/02/22 19:29 BP 0/0 12/02/22 19:29 Pulse Ox 0 L 12/02/22 19:29 O2 Del Method 12/02/22 13:51 O2 Flow Rate 8 12/02/22 13:51 FiO2 40 12/02/22 12:00 Discharge Plan Discharge Patient Disposition: Condition: Stable Probable Cause of Probable cause of : Cardiac arrest Discharge Attestations Time Spent in Discharge Care*: less than 30 min Specific Discharge Activities: documenting/other paperwork Quality Metrics Clinical Quality Measures [ No reported AMI, CVA or VTE this stay (Was admitted with PE. Started anticoagulation on admission. )] Coding Level of Care Code Acute Code for [facility] Fwd Diagnoses Acute pulmonary embolism I26.99 Acute respiratory failure J96.00 Acute diastolic (congestive) heart failure I50.31 Anemia D64.9 Protein calorie malnutrition E46 Coronary artery disease I25.10 COPD (chronic obstructive pulmonary disease) J44.9
== END 2022-12-02 18:28 | disposition expired | DRG 175 ==
LOC: ER 06:17 → CSU 10:24
PROVIDERS: Admitting Provider Internal Medicine; Emergency Provider Family Medicine; PCP Family Medicine; Visit Provider Family Medicine
DX: I26.99 Other pulmonary embolism without acute cor pulmonale (principal); E43 Unspecified severe protein-calorie malnutrition; I50.33 Acute on chronic diastolic (congestive) heart failure; J96.22 Acute and chronic respiratory failure with hypercapnia; J96.21 Acute and chronic respiratory failure with hypoxia; Z68.1 Body mass index [BMI] 19.9 or less, adult; J91.8 Pleural effusion in other conditions classified elsewhere; I11.0 Hypertensive heart disease with heart failure; I46.8 Cardiac arrest due to other underlying condition; D64.9 Anemia, unspecified; R19.5 Other fecal abnormalities; E87.6 Hypokalemia; J44.9 Chronic obstructive pulmonary disease, unspecified; I25.10 Atherosclerotic heart disease of native coronary artery without angina pectoris; Z87.891 Personal history of nicotine dependence
CPT/HCPCS: 31500; 32555; 36415; 36416; 36430; 36600; 51702; 71045; 71275; 74176; 80048; 80051; 80053; 81001; 82274; 82330; 82607; 82728; 82746; 82805; 82962; 83540; 83550; 83605; 83735; 83880; 84145; 84443; 85025; 85610; 85730; 86850; 86900; 86920; 87040; 87070; 87075; 87086; 87205; 87635; 92523; 92610; 93005; 93970; 94640; 96365; 96367; 96372; 96376; 97110; 97161; 97530; 99285; J0171; J0360; J1644; J1650; J1756; J1940; J2001; J2270; J2405; J2543; J3370; J7050; J7626; P9016; P9046; P9047; Q9967